=== PATIENT | female | born 1955 | race Caucasian/White ===

== ENCOUNTER 2017-09-18 08:20 | Inpatient (IN) | payer BC ==
[2017-09-18] MEDS ORDERED: SODIUM CHLORIDE 0.9% 1,000 ML IV STA (08:47)
[2017-09-18] MEDS ORDERED: ALBUTEROL NEBULIZED 2.5 MG/3 ML INHALATION STA (08:47)
[2017-09-18] MEDS ORDERED: SODIUM CHLORIDE 0.9% 500 ML IV STA (08:47)
[2017-09-18] MEDS ORDERED: IPRATROPIUM 0.5 MG/2.5 ML NEBU INHALATION STA (08:47)
[2017-09-18] MEDS ORDERED: AZITHROMYCIN 500 MG in SODIUM CHLORIDE 0.9% 250 ML IVPB STA (08:49)
[2017-09-18 09:01] LABS: Basophils # (A) 0.1 k/uL (0-0.2); Basophils % (A) 0 %; Eosinophils # (A) 0.2 k/uL (0-0.7); Eosinophils % (A) 1 %; HCT 39.2 % (34.0-46.0); HGB 13.4 gm/dL (11.4-16.0); Lymphocytes # (A) 1.6 k/uL (1.0-4.8); Lymphocytes % (A) 10 %; MCH 31.2 pg (25.0-35.0); MCHC 34.2 g/dL (31.0-37.0); MCV 91.2 fL (80.0-100.0); Mean Platelet Volume 6.6; Monocytes # (A) 0.6 k/uL (0-1.0); Monocytes % (A) 4 %; Neutrophils # (A) 13.1 k/uL (1.3-7.7); Neutrophils % (A) 84 %; Platelet Count 311 k/uL (150-450); RDW 13.2 % (11.5-15.5); WBC 15.7 k/uL (3.8-10.6)
--- NOTE | 2017-09-18 09:07 | XR ---
EXAMINATION TYPE: XR chest 1V portable DATE OF EXAM: 09/18/2017 COMPARISON: NONE HISTORY: Shortness of breath TECHNIQUE: Single frontal view of the chest is obtained. FINDINGS: There is no focal air space opacity, pleural effusion, or pneumothorax seen. The cardiac silhouette size is within normal limits. The osseous structures are intact. Atherosclerotic change of the aorta. No overt failure IMPRESSION: No acute process.
[2017-09-18 09:13] LABS: Partial Thromboplastin Time 22.3 sec (22.0-30.0); Prothrombin Time 9.5 sec (9.0-12.0)
[2017-09-18 09:14] LABS: ALT 31 U/L (9-52); AST 29 U/L (14-36); Albumin 4.4 g/dL (3.5-5.0); Alkaline Phosphatase 117 U/L (38-126); Anion Gap 13 mmol/L; Blood Urea Nitrogen 16 mg/dL (7-17); Calcium 10.3 mg/dL (8.4-10.2); Carbon Dioxide 27 mmol/L (22-30); Chloride 102 mmol/L (98-107); Glucose 114 mg/dL (74-99); Potassium 4.2 mmol/L (3.5-5.1); Sodium 142 mmol/L (137-145); Total Bilirubin 0.6 mg/dL (0.2-1.3); Total Protein 7.2 g/dL (6.3-8.2)
--- NOTE | 2017-09-18 09:23 | ED ---
General Adult HPI - General Chief complaint: Shortness of Breath Stated complaint: JEFFERSON Time Seen by Provider: 09/18/17 08:45 Source: patient, RN notes reviewed, old records reviewed Mode of arrival: wheelchair Limitations: no limitations - History of Present Illness Initial comments: This is a 62-year-old female the ER for evaluation of significant shortness of breath especially with exertion. Patient has history of heart disease and history of smoking but no diagnosis of COPD. Patient states her lungs and wheezing she's been coughing and suffering with a respiratory infection 3 days. No chest pain. Patient states she has had fluid on her heart before but nothing recently. She denies any fevers, no cough or congestion no travel history. - Related Data Home Medications Medication Instructions Recorded Confirmed ALPRAZolam [Xanax] 0.5 mg PO HS 09/18/17 09/18/17 Ascorbic Acid [Vitamin C] 500 mg PO DAILY 09/18/17 09/18/17 Atorvastatin [Lipitor] 80 mg PO HS 09/18/17 09/18/17 Cholecalciferol [Vitamin D3] 1,000 unit PO DAILY 09/18/17 09/18/17 Ibuprofen [Motrin] 600 mg PO Q8HR PRN 09/18/17 09/18/17 Levothyroxine Sodium [Synthroid] 50 mcg PO DAILY 09/18/17 09/18/17 [place]-3 Fatty Acids/Fish Oil [Fish 1 cap PO DAILY 09/18/17 09/18/17 Oil 1,000 mg Softgel] Potassium Chloride [Klor-Con 20] 40 meq PO HS 09/18/17 09/18/17 Triamterene-Hctz 37.5-25Mg 1 cap PO DAILY 09/18/17 09/18/17 [Dyazide 37.5-25 Capsule] Ubidecarenone [Co Q-10] 100 mg PO DAILY 09/18/17 09/18/17 Vitamin B Complex 1 cap PO DAILY 09/18/17 09/18/17 amLODIPine [Norvasc] 10 mg PO DAILY 09/18/17 09/18/17 Allergies Allergy/AdvReac Type Severity Reaction Status Date / Time latex Allergy Rash/Hives Verified 09/18/17 08:50 Review of Systems ROS Statement: Those systems with pertinent positive or pertinent negative responses have been documented in the HPI. ROS Other: All systems not noted in ROS Statement are negative. Past Medical History Past Medical History: Hyperlipidemia, Hypertension, Thyroid Disorder History of Any Multi-Drug Resistant Organisms: None Reported Past Surgical History: Heart Catheterization, Orthopedic Surgery Additional Past Surgical History / Comment(s): bilateral knees Past Psychological History: Anxiety Smoking Status: Current every day smoker Past Alcohol Use History: Occasional Past Drug Use History: None Reported General Exam Limitations: no limitations General appearance: alert, in no apparent distress, anxious, in distress Head exam: Present: atraumatic, normocephalic, normal inspection Eye exam: Present: normal appearance, PERRL, EOMI. Absent: scleral icterus, conjunctival injection, periorbital swelling ENT exam: Present: normal exam, mucous membranes moist Neck exam: Present: normal inspection. Absent: tenderness, meningismus, lymphadenopathy Respiratory exam: Present: respiratory distress, wheezes, rales, decreased breath sounds, prolonged expiratory. Absent: rhonchi, stridor Cardiovascular Exam: Present: normal rhythm, tachycardia, normal heart sounds. Absent: systolic murmur, diastolic murmur, rubs, gallop, clicks GI/Abdominal exam: Present: soft, normal bowel sounds. Absent: distended, tenderness, guarding, rebound, rigid Extremities exam: Present: normal inspection, full ROM, normal capillary refill. Absent: tenderness, pedal edema, joint swelling, calf tenderness Back exam: Present: normal inspection Neurological exam: Present: alert, oriented X3, CN II-XII intact Psychiatric exam: Present: normal affect, normal mood Skin exam: Present: warm, dry, intact, normal color. Absent: rash Course Vital Signs 09/18/17 09/18/17 09/18/17 08:28 08:53 09:10 Temperature 98 F Pulse Rate 118 H 98 102 H Respiratory 28 H Rate Blood Pressure 163/82 O2 Sat by Pulse 80 L Oximetry 09/18/17 09:44 Temperature Pulse Rate 112 H Respiratory Rate Blood Pressure O2 Sat by Pulse Oximetry - Reevaluation(s) Reevaluation #1: 09/18/17 10:40 Patient with no improvement after prolonged breathing treatment and mild improvement, patient placed on BiPAP EKG Findings - EKG Comments: EKG Findings:: EKG shows sinus tachycardia rate 102, [place] 132, QRS 78, QTC 411 Medical Decision Making - Medical Decision Making 62 female the ER for evaluation, patient presents ER for evaluation of shortness of breath, patient placed on BiPAP secondary severe work of breathing COPD with hypoxia. Patient will be admitted for further evaluation and treatment - Lab Data Result diagrams: 09/18/17 08:45 09/18/17 08:45 Lab Results 09/18/17 09/18/17 09/18/17 Range/Units 08:45 08:45 08:45 WBC 15.7 H (3.8-10.6) k/uL RBC 4.30 (3.80-5.40) m/uL Hgb 13.4 (11.4-16.0) gm/dL Hct 39.2 (34.0-46.0) % MCV 91.2 (80.0-100.0) fL MCH 31.2 (25.0-35.0) pg MCHC 34.2 (31.0-37.0) g/dL RDW 13.2 (11.5-15.5) % Plt Count 311 (150-450) k/uL Neutrophils % 84 % Lymphocytes % 10 % Monocytes % 4 % Eosinophils % 1 % Basophils % 0 % Neutrophils # 13.1 H (1.3-7.7) k/uL Lymphocytes # 1.6 (1.0-4.8) k/uL Monocytes # 0.6 (0-1.0) k/uL Eosinophils # 0.2 (0-0.7) k/uL Basophils # 0.1 (0-0.2) k/uL PT (9.0-12.0) sec INR (<1.2) APTT (22.0-30.0) sec Sodium 142 (137-145) mmol/L Potassium 4.2 (3.5-5.1) mmol/L Chloride 102 (98-107) mmol/L Carbon Dioxide 27 (22-30) mmol/L Anion Gap 13 mmol/L BUN 16 (7-17) mg/dL Creatinine 0.88 (0.52-1.04) mg/dL Est GFR (MDRD) Af Amer >60 (>60 ml/min/1.73 sqM) Est GFR (MDRD) Non-Af >60 (>60 ml/min/1.73 sqM) Glucose 114 H (74-99) mg/dL Calcium 10.3 H (8.4-10.2) mg/dL Magnesium 1.7 (1.6-2.3) mg/dL Total Bilirubin 0.6 (0.2-1.3) mg/dL AST 29 (14-36) U/L ALT 31 (9-52) U/L Alkaline Phosphatase 117 (38-126) U/L Total Creatine Kinase 181 H (30-135) U/L CK-MB (CK-2) 2.7 H* (0.0-2.4) ng/mL CK-MB (CK-2) Rel Index 1.5 Troponin I <0.012 (0.000-0.034) ng/mL NT-Pro-B Natriuret Pep pg/mL Total Protein 7.2 (6.3-8.2) g/dL Albumin 4.4 (3.5-5.0) g/dL 09/18/17 09/18/17 Range/Units 08:45 08:45 WBC (3.8-10.6) k/uL RBC (3.80-5.40) m/uL Hgb (11.4-16.0) gm/dL Hct (34.0-46.0) % MCV (80.0-100.0) fL MCH (25.0-35.0) pg MCHC (31.0-37.0) g/dL RDW (11.5-15.5) % Plt Count (150-450) k/uL Neutrophils % % Lymphocytes % % Monocytes % % Eosinophils % % Basophils % % Neutrophils # (1.3-7.7) k/uL Lymphocytes # (1.0-4.8) k/uL Monocytes # (0-1.0) k/uL Eosinophils # (0-0.7) k/uL Basophils # (0-0.2) k/uL PT 9.5 (9.0-12.0) sec INR 1.0 (<1.2) APTT 22.3 (22.0-30.0) sec Sodium (137-145) mmol/L Potassium (3.5-5.1) mmol/L Chloride (98-107) mmol/L Carbon Dioxide (22-30) mmol/L Anion Gap mmol/L BUN (7-17) mg/dL Creatinine (0.52-1.04) mg/dL Est GFR (MDRD) Af Amer (>60 ml/min/1.73 sqM) Est GFR (MDRD) Non-Af (>60 ml/min/1.73 sqM) Glucose (74-99) mg/dL Calcium (8.4-10.2) mg/dL Magnesium (1.6-2.3) mg/dL Total Bilirubin (0.2-1.3) mg/dL AST (14-36) U/L ALT (9-52) U/L Alkaline Phosphatase (38-126) U/L Total Creatine Kinase (30-135) U/L CK-MB (CK-2) (0.0-2.4) ng/mL CK-MB (CK-2) Rel Index Troponin I (0.000-0.034) ng/mL NT-Pro-B Natriuret Pep 169 pg/mL Total Protein (6.3-8.2) g/dL Albumin (3.5-5.0) g/dL - Radiology Data Radiology results: report reviewed (Chest x-rays negative), image reviewed Critical Care Time Critical Care Time: Yes Total Critical Care Time: 31 Disposition Clinical Impression: Acute exacerbation of chronic obstructive airways disease, Acute respiratory failure, Hypoxia Disposition: ADMITTED IP TO THIS HOSP Condition: Fair Referrals: Ollie Patten MD [Primary Care Provider] - 1-2 days
[2017-09-18 09:25] LABS: Creatine Kinase 181 U/L (30-135)
[2017-09-18 09:37] LABS: Troponin I <0.012 ng/mL (0.000-0.034)
[2017-09-18 09:41] LABS: Creatine Kinase MB 2.7 ng/mL (0.0-2.4)
[2017-09-18] MEDS ORDERED: methylPREDNISolone SOD SUCCI 125 MG/2 ML VIAL IV STA (10:42)
[2017-09-18] MEDS ORDERED: cefTRIAXone IN SWFI 1,000 MG/10 ML SYRINGE IVP STA (11:04)
[2017-09-18 11:15] LABS: ABG Base Excess 0.5 mmol/L; ABG HCO3 25 mmol/L (21-25); ABG Oxygen Saturation 96.4 % (94-97); ABG PCO2 40 mmHg (35-45); ABG PH 7.41 (7.35-7.45); ABG PO2 77 mmHg (83-108); ABG TCO2 26 mmol/L (19-24)
[2017-09-18] MEDS: TRIAMTERENE-HCTZ 37.5-25MG 1 EACH CAP PO STA ×2 (11:29→12:13)
[2017-09-18] MEDS ORDERED: PNEUMOCOCCAL VACC-PNEUMOVAX 23 25 MCG/0.5 ML VIAL IM ONE (12:03)
[2017-09-18] MEDS: IPRATROPIUM-ALBUTEROL 3 ML NEB INHALATION SCH ×3 (12:57→20:27)
[2017-09-18] MEDS ORDERED: IPRATROPIUM-ALBUTEROL 3 ML NEB INHALATION PRN (13:18)
[2017-09-18] MEDS ORDERED: PANTOPRAZOLE 40 MG TABLET PO STA (13:32)
--- NOTE | 2017-09-18 13:37 | P.HPIM ---
History of Present Illness H&P Date: 09/18/17 Chief Complaint: Shortness of breath and cough The patient is a 62-year-old female with a past medical history of essential hypertension hyperlipidemia and hypothyroidism and a history of smoking who presents to the ER with chief complaint of progressive worsening shortness of breath over the last 3 days. 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 She reports a significant pack history of at least 40 years, but denies any diagnosis of COPD. She denies any nausea vomiting abdominal pain or lower extremity swelling. She reports of pretty bad wheezes and progressive worsening shortness of breath since Thursday , she does not have an inhaler of any kind. On presentation in the ER she was noted to be pretty dyspneic and in respiratory distress and was admitted and placed on BiPAP in the ER and started on systemic steroids Solu-Medrol, DuoNeb breathing treatments and azithromycin. The patient was noted to have a leukocytosis of 15 and a chest x-ray that showed no acute process Review of Systems All of the 14 point review of systems negative except per HPI Past Medical History Past Medical History: Hyperlipidemia, Hypertension, Osteoarthritis (OA), Thyroid Disorder Additional Past Medical History / Comment(s): Hypothyroid, varicosities. History of Any Multi-Drug Resistant Organisms: None Reported Past Surgical History: Heart Catheterization, Orthopedic Surgery, Tubal Ligation , Uterine Ablation Additional Past Surgical History / Comment(s): Bilateral knee arthroscopies, colonoscopy, cardiac cath showed an "extra artery". Past Anesthesia/Blood Transfusion Reactions: No Reported Reaction Past Psychological History: Anxiety Additional Psychological History / Comment(s): Pt resides with her granddaughter who is 16 yrs old and a cat and dog. Pt is independent. Smoking Status: Current every day smoker Past Alcohol Use History: Occasional Additional Past Alcohol Use History / Comment(s): Pt started smoking in 1977 and is less than a ppd smoker. Past Drug Use History: None Reported - Past Family History Father Family Medical History: Dementia Additional Family Medical History / Comment(s): Father of alzheimer's disease Mother Family Medical History: No Reported History Additional Family Medical History / Comment(s): Mother is 84 yrs old. Medications and Allergies Home Medications Medication Instructions Recorded Confirmed Type ALPRAZolam [Xanax] 0.5 mg PO HS 09/18/17 09/18/17 History Ascorbic Acid [Vitamin C] 500 mg PO DAILY 09/18/17 09/18/17 History Atorvastatin [Lipitor] 80 mg PO HS 09/18/17 09/18/17 History Cholecalciferol [Vitamin D3] 1,000 unit PO DAILY 09/18/17 09/18/17 History Ibuprofen [Motrin] 600 mg PO Q8HR PRN 09/18/17 09/18/17 History Levothyroxine Sodium [Synthroid] 50 mcg PO DAILY 09/18/17 09/18/17 History [place]-3 Fatty Acids/Fish Oil [Fish 1 cap PO DAILY 09/18/17 09/18/17 History Oil 1,000 mg Softgel] Potassium Chloride [Klor-Con 20] 40 meq PO HS 09/18/17 09/18/17 History Triamterene-Hctz 37.5-25Mg 1 cap PO DAILY 09/18/17 09/18/17 History [Dyazide 37.5-25 Capsule] Ubidecarenone [Co Q-10] 100 mg PO DAILY 09/18/17 09/18/17 History Vitamin B Complex 1 cap PO DAILY 09/18/17 09/18/17 History amLODIPine [Norvasc] 10 mg PO DAILY 09/18/17 09/18/17 History Allergies Allergy/AdvReac Type Severity Reaction Status Date / Time latex Allergy Rash/Hives Verified 09/18/17 08:50 Physical Exam Vitals: Vital Signs Temp Pulse Resp BP Pulse Ox 09/18/17 13:18 96 09/18/17 12:57 92 09/18/17 11:05 97.4 F L 112 H 20 122/62 96 09/18/17 10:33 108 H 20 117/62 09/18/17 09:44 112 H 09/18/17 09:33 104 H 134/62 99 09/18/17 09:10 102 H 09/18/17 08:53 98 09/18/17 08:28 98 F 118 H 28 H 163/82 80 L Intake and Output 09/17/17 09/18/17 09/18/17 22:59 06:59 14:59 Other: Weight 76.204 kg Patient Weight 09/19/17 06:59 Weight 76.204 kg Constitutional: No acute distress, conversant, pleasant Eyes: Anicteric sclerae, moist conjunctiva, no lid-lag, PERRLA ENMT: NC/AT,Oropharynx clear, no erythema, exudates Neck:Supple, FROM, no masses, or JVD, No carotid bruits; No thyromegaly Lungs: Poor air movement diffuse wheezes, Clear to percussion, mild respiratory distress speaking in complete sentences, on BiPAP Cardiovascular: Heart regular in rate and rhythm, No murmurs, gallops, or rubs no peripheral edema Abdominal: Soft Nontender, nom distended, no guarding, no rebound or rigidity, Normoactive bowel sounds No hepatomegaly, No splenomegaly, No palpable mass No abdominal wall hernia noted Skin: Normal temperature, tone, texture, turgor, No induration No subcutaneous nodules, No rash, lesions, No ulcers Extremities:No digital cyanosis No clubbing, Pedal pulses intact and symmetrical Radial pulses intact and symmetrical Normal gait and station, No calf tenderness Psychiatric: Alert and oriented to person, place and time, Appropriate affect Intact judgement Neuro: Muscles Strength 5/5 in all 4 extremities, Sensation to light touch grossly present throughout, Cranial nerves II-XII grossly intact. No focal sensory deficits Results CBC & Chem 7: 09/18/17 08:45 09/18/17 08:45 Labs: Abnormal Lab Results - Last 24 Hours (Table) 09/18/17 09/18/17 09/18/17 Range/Units 08:45 08:45 08:45 WBC 15.7 H (3.8-10.6) k/uL Neutrophils # 13.1 H (1.3-7.7) k/uL ABG pO2 (83-108) mmHg ABG Total CO2 (19-24) mmol/L Glucose 114 H (74-99) mg/dL Calcium 10.3 H (8.4-10.2) mg/dL Total Creatine Kinase 181 H (30-135) U/L CK-MB (CK-2) 2.7 H* (0.0-2.4) ng/mL 09/18/17 Range/Units 11:12 WBC (3.8-10.6) k/uL Neutrophils # (1.3-7.7) k/uL ABG pO2 77 L (83-108) mmHg ABG Total CO2 26 H (19-24) mmol/L Glucose (74-99) mg/dL Calcium (8.4-10.2) mg/dL Total Creatine Kinase (30-135) U/L CK-MB (CK-2) (0.0-2.4) ng/mL Thrombosis Risk Factor Assmnt - Choose All That Apply Any of the Below Risk Factors Present?: Yes Each Factor Represents 1 point: Obesity (BMI >25), Varicose veins Other Risk Factors: Yes Each Risk Factor Represents 2 Points: Age 61-74 years Other congenital or acquired thrombophilia - If yes, enter type in comment: No Thrombosis Risk Factor Assessment Total Risk Factor Score: 4 Thrombosis Risk Factor Assessment Level: Moderate Risk Assessment and Plan (1) Acute respiratory failure with hypoxemia Current Visit: Yes Status: Acute Code(s): J96.01 - ACUTE RESPIRATORY FAILURE WITH HYPOXIA SNOMED Code(s): 703394711 (2) Acute exacerbation of chronic obstructive airways disease Current Visit: Yes Status: Acute Code(s): J44.1 - CHRONIC OBSTRUCTIVE PULMONARY DISEASE W (ACUTE) EXACERBATION SNOMED Code(s): 476016405 (3) Essential hypertension Current Visit: Yes Status: Acute Code(s): I10 - ESSENTIAL (PRIMARY) HYPERTENSION SNOMED Code(s): 88764390 Plan: The patient is admitted with acute respiratory failure with hypoxemia anticipate a greater than 2 midnight stay triggered by a acute COPD exacerbation likely secondary to upper respiratory tract infection. She is continued on BiPAP ABG indicating some hypoxemia present, will consult pulmonary for further recommendations. It is likely given the patient's significant pack history that she has underlying COPD. We'll continue with scheduled and when necessary DuoNeb bronchodilator breathing treatments, along with Solu-Medrol And empiric antibiotic coverage with Rocephin and azithromycin , will start her on some gentle hydration and recheck a chest x-ray tomorrow, on the flu is negative will order urinalysis and blood cultures given the patient's leukocytosis. We'll resume her home antihypertensive regimen and continue to follow her clinical course. We'll place the patient on Lovenox and Protonix for DVT and GI prophylaxis respectively
--- NOTE | 2017-09-18 14:49 | P.CNPUL ---
History of Present Illness Consult date: 09/18/17 Requesting physician: Elton Agarwal Reason for consult: dyspnea, cough, chest pain, COPD Chief complaint: Increasing dyspnea, cough with yellow phlegm production, chest wall pain History of present illness: Connie is a 62-year-old white female patient of Dr. Patten who presented to the hospital on 09/18/2017 at 0820 with complaints of significant orthopnea, dyspnea , congested cough with production of thick yellow phlegm, and chest wall tenderness with coughing. Her symptoms started last Thursday and became progressively worse, and for the last 2 days she has been in significant amount of respiratory distress. She states her granddaughter was sick with the upper respiratory infection last week, but improved. Patient is a current smoker, on and off for over 44 years, currently down to less than a pack a day. Has never been diagnosed with COPD, is not on any oxygen, inhalers or nebulized treatments. Denies any fever, or chills. Denies any hemoptysis. On admission in the emergency room, her pulse ox was found to be as low as 80% on room air, patient was placed on supplemental oxygen. She has been afebrile, she has been slightly tachycardic with a rate of 112 BPM. Chest x-ray showed no acute process. Lab work showed a PVC of 15.7, hemoglobin of 13.4, electrolytes were within normal limits so has the renal profile, CK-MB was slightly elevated at 2.7, troponin was negative 1, proBNP was within normal limits at 169, influenza screen was negative. Blood gas was obtained and it showed a pH of 7.41, pCO2 of 40, pO2 of 77, this was done on FiO2 of 40%. Patient was placed on BiPAP support with pressures of 10/5, and FiO2 of 40%. Patient was started on IV Solu-Medrol, azithromycin and Rocephin, DuoNeb nebulized treatments and admitted for further management. Review of Systems All systems: negative Constitutional: Denies chills, Denies fever Eyes: denies blurred vision, denies pain Ears, nose, mouth and throat: Denies headache, Denies sore throat Cardiovascular: Denies chest pain, Denies shortness of breath Respiratory: Denies cough Gastrointestinal: Denies abdominal pain, Denies diarrhea, Denies nausea, Denies vomiting Genitourinary: Denies dysuria, Denies hematuria Musculoskeletal: Denies myalgias Integumentary: Denies pruritus, Denies rash Neurological: Denies numbness, Denies weakness Psychiatric: Denies anxiety, Denies depression Endocrine: Denies fatigue, Denies weight change Past Medical History Past Medical History: Hyperlipidemia, Hypertension, Osteoarthritis (OA), Thyroid Disorder Additional Past Medical History / Comment(s): Hypothyroid, varicosities. History of Any Multi-Drug Resistant Organisms: None Reported Past Surgical History: Heart Catheterization, Orthopedic Surgery, Tubal Ligation , Uterine Ablation Additional Past Surgical History / Comment(s): Bilateral knee arthroscopies, colonoscopy, cardiac cath showed an "extra artery". Past Anesthesia/Blood Transfusion Reactions: No Reported Reaction Past Psychological History: Anxiety Additional Psychological History / Comment(s): Pt resides with her granddaughter who is 16 yrs old and a cat and dog. Pt is independent. Smoking Status: Current every day smoker Past Alcohol Use History: Occasional Additional Past Alcohol Use History / Comment(s): Pt started smoking in 1977 and is less than a ppd smoker. Past Drug Use History: None Reported - Past Family History Father Family Medical History: Dementia Additional Family Medical History / Comment(s): Father of alzheimer's disease Mother Family Medical History: No Reported History Additional Family Medical History / Comment(s): Mother is 84 yrs old. Medications and Allergies Home Medications Medication Instructions Recorded Confirmed Type ALPRAZolam [Xanax] 0.5 mg PO HS 09/18/17 09/18/17 History Ascorbic Acid [Vitamin C] 500 mg PO DAILY 09/18/17 09/18/17 History Atorvastatin [Lipitor] 80 mg PO HS 09/18/17 09/18/17 History Cholecalciferol [Vitamin D3] 1,000 unit PO DAILY 09/18/17 09/18/17 History Ibuprofen [Motrin] 600 mg PO Q8HR PRN 09/18/17 09/18/17 History Levothyroxine Sodium [Synthroid] 50 mcg PO DAILY 09/18/17 09/18/17 History [place]-3 Fatty Acids/Fish Oil [Fish 1 cap PO DAILY 09/18/17 09/18/17 History Oil 1,000 mg Softgel] Potassium Chloride [Klor-Con 20] 40 meq PO HS 09/18/17 09/18/17 History Triamterene-Hctz 37.5-25Mg 1 cap PO DAILY 09/18/17 09/18/17 History [Dyazide 37.5-25 Capsule] Ubidecarenone [Co Q-10] 100 mg PO DAILY 09/18/17 09/18/17 History Vitamin B Complex 1 cap PO DAILY 09/18/17 09/18/17 History amLODIPine [Norvasc] 10 mg PO DAILY 09/18/17 09/18/17 History Allergies Allergy/AdvReac Type Severity Reaction Status Date / Time latex Allergy Rash/Hives Verified 09/18/17 08:50 Physical Exam Vitals: Vital Signs Temp Pulse Resp BP Pulse Ox 09/18/17 13:18 96 09/18/17 12:57 92 09/18/17 11:05 97.4 F L 112 H 20 122/62 96 09/18/17 10:33 108 H 20 117/62 09/18/17 09:44 112 H 09/18/17 09:33 104 H 134/62 99 09/18/17 09:10 102 H 09/18/17 08:53 98 09/18/17 08:28 98 F 118 H 28 H 163/82 80 L Intake and Output 09/17/17 09/18/17 09/18/17 22:59 06:59 14:59 Other: Weight 76.204 kg Patient Weight 09/19/17 06:59 Weight 76.204 kg GENERAL EXAM: Alert, pleasant, 62-year-old white female, comfortable in no apparent distress. HEAD: Normocephalic/atraumatic. EYES: Normal reaction of pupils, equal size. Conjunctiva pink, sclera white. NOSE: Clear with pink turbinates. THROAT: No erythema or exudates. NECK: No masses, no JVD, no thyroid enlargement, no adenopathy. CHEST: No chest wall deformity. Symmetrical expansion. LUNGS: Diminished breath sounds bilaterally, with scattered expiratory wheezes throughout the lung golden CVS: Regular rate and rhythm, normal S1 and S2, no gallops, no murmurs, no rubs ABDOMEN: Soft, nontender. No hepatosplenomegaly, normal bowel sounds, no guarding or rigidity. EXTREMITIES: No clubbing, no edema, no cyanosis, 2+ pulses and upper and lower extremities. MUSCULOSKELETAL: Muscle strength and tone normal. SPINE: No scoliosis or deformity SKIN: No rashes CENTRAL NERVOUS SYSTEM: Alert and oriented -3. No focal deficits, tone is normal in all 4 extremities. PSYCHIATRIC: Alert and oriented -3. Appropriate affect. Intact judgment and insight. Results - Laboratory Findings CBC and BMP: 09/18/17 08:45 09/18/17 08:45 ABG ABG pH 7.41 (7.35-7.45) 09/18/17 11:12 ABG pCO2 40 mmHg (35-45) 09/18/17 11:12 ABG pO2 77 mmHg (83-108) L 09/18/17 11:12 ABG O2 Saturation 96.4 % (94-97) 09/18/17 11:12 PT/INR, D-dimer PT 9.5 sec (9.0-12.0) 09/18/17 08:45 INR 1.0 (<1.2) 09/18/17 08:45 Abnormal lab findings: Abnormal Labs 09/18/17 09/18/17 09/18/17 08:45 08:45 08:45 WBC 15.7 H Neutrophils # 13.1 H ABG pO2 ABG Total CO2 Glucose 114 H Calcium 10.3 H Total Creatine Kinase 181 H CK-MB (CK-2) 2.7 H* 09/18/17 11:12 WBC Neutrophils # ABG pO2 77 L ABG Total CO2 26 H Glucose Calcium Total Creatine Kinase CK-MB (CK-2) - Diagnostic Findings Chest x-ray: report reviewed Additional studies: Twelve-lead EKG reviewed Assessment and Plan Plan: Assessment: #1. Acute hypoxic respiratory failure secondary to acute COPD exacerbation complicated by purulent tracheobronchitis, chest x-ray from 09/18/2017 was negative for any acute process #2. COPD, severity of which is unknown at this time #3. Nicotine dependence, ongoing, patient carries over 44 [id number] smoking history on and off. Currently down to less than a pack a day #4. Hypertension, hyperlipidemia #5. Anxiety #6. Osteoarthritis #7. Hypothyroidism #8. Bilateral knee arthroscopies #9. Tubal ligation, uterine ablation history Plan: We will stop the Zithromax and Rocephin, patient will be switched to oral Augmentin, continue DuoNeb nebulized treatments, we will add Pulmicort and Perforomist. Continue Solu-Medrol 60 mg every 6 hours. Smoking cessation was strongly advised. Continue BiPAP support, patient may be given nasal cannula trial if she is able to tolerate later today. I performed a history & physical examination of the patient and discussed their management with my nurse practitioner, Catherine Rodriguez. I reviewed the nurse practitioner's note and agree with the documented findings and plan of care. Lung sounds are positive for diffuse wheezes throughout the lung golden. The findings and the impression was discussed with the patient. I attest to the documentation by the nurse practitioner. Time with Patient: Greater than 30
[2017-09-18] MEDS: INSULIN ASPART 100 UNIT/ML 1 ML 10 ML VIAL SQ SCH ×3 (15:48→20:45)
[2017-09-18] MEDS: SODIUM CHLORIDE 0.9% 1,000 ML IV SCH (15:49)
[2017-09-18] MEDS: ENOXAPARIN 40 MG/0.4 ML SYRINGE SQ SCH (15:49)
[2017-09-18] MEDS: methylPREDNISolone SOD SUCCI 125 MG/2 ML VIAL IV SCH ×3 (15:49→23:02)
[2017-09-18 16:52] LABS: Glucose,Whole Blood 183 mg/dL (75-99)
[2017-09-18 18:54] LABS: Appearance,Urine Clear (Clear); Bilirubin,Urine Negative (Negative); Blood,Urine Trace (Negative); Color,Urine Light Yellow; Glucose,Urine (UA) Negative (Negative); Ketones,Urine Negative (Negative); Leukocyte Esterase,Urine Moderate (Negative); Mucus,Urine Rare /hpf; PH, Urine 5.5 (5.0-8.0); Protein,Urine Negative (Negative); RBC,Urine 3 /hpf (0-5); Squamous Epithelial Cell,Urine 3 /hpf (0-4); Urobilinogen,Urine <2.0 mg/dL (<2.0); WBC,Urine 3 /hpf (0-5)
[2017-09-18] MEDS: FORMOTEROL FUMARATE 20 MCG/2 ML NEBU INHALATION SCH (20:26)
[2017-09-18] MEDS: BUDESONIDE 1 MG/2 ML NEBU INHALATION SCH (20:26)
[2017-09-18] MEDS: ALPRAZolam 0.5 MG TAB PO SCH (20:33)
[2017-09-18] MEDS: POTASSIUM CHLORIDE ER 20 MEQ TAB.ER PO SCH (20:33)
[2017-09-18] MEDS: AMOXIC-POT CLAV 875-125MG 1 EACH TAB PO SCH (20:33)
[2017-09-18] MEDS: ATORVASTATIN 80 MG TAB PO SCH (20:33)
[2017-09-18 20:43] LABS: Glucose,Whole Blood 147 mg/dL (75-99)
[2017-09-18] MEDS: IBUPROFEN 600 MG TAB PO PRN (20:44)
[2017-09-19] MEDS: IBUPROFEN 600 MG TAB PO PRN (04:05)
[2017-09-19 05:41] LABS: Glucose,Whole Blood 159 mg/dL (75-99)
[2017-09-19] MEDS: INSULIN ASPART 100 UNIT/ML 1 ML 10 ML VIAL SQ SCH ×4 (06:02→21:42)
[2017-09-19] MEDS: SODIUM CHLORIDE 0.9% 1,000 ML IV SCH ×3 (06:02→21:43)
[2017-09-19] MEDS: LEVOTHYROXINE 50 MCG TAB PO SCH (06:02)
[2017-09-19] MEDS: PANTOPRAZOLE 40 MG TABLET PO SCH (06:02)
[2017-09-19] MEDS: methylPREDNISolone SOD SUCCI 125 MG/2 ML VIAL IV SCH ×4 (06:03→23:18)
--- NOTE | 2017-09-19 07:55 | XR ---
EXAMINATION TYPE: XR chest 2V DATE OF EXAM: 09/19/2017 COMPARISON: 09/18/2017 INDICATION: COPD pneumonia TECHNIQUE: Frontal and lateral views of the chest are obtained. FINDINGS: The heart size is normal. The pulmonary vasculature is normal. The lungs are clear. There is some mild hyperinflation. IMPRESSION: 1. No acute pulmonary process.
[2017-09-19] MEDS: amLODIPine 10 MG TAB PO SCH (08:13)
[2017-09-19] MEDS: CHOLECALCIFEROL 1,000 UNIT TAB PO SCH (08:13)
[2017-09-19] MEDS: ASCORBIC ACID 500 MG TAB PO SCH (08:13)
[2017-09-19] MEDS: TRIAMTERENE-HCTZ 37.5-25MG 1 EACH CAP PO SCH (08:13)
[2017-09-19] MEDS: AMOXIC-POT CLAV 875-125MG 1 EACH TAB PO SCH ×2 (08:13→21:42)
[2017-09-19] MEDS: ENOXAPARIN 40 MG/0.4 ML SYRINGE SQ SCH (08:13)
[2017-09-19] MEDS: Z-BEC PO SCH (08:13)
[2017-09-19] MEDS: IPRATROPIUM-ALBUTEROL 3 ML NEB INHALATION SCH ×4 (08:39→19:57)
[2017-09-19] MEDS: FORMOTEROL FUMARATE 20 MCG/2 ML NEBU INHALATION SCH ×2 (08:39→19:57)
[2017-09-19] MEDS: BUDESONIDE 1 MG/2 ML NEBU INHALATION SCH ×2 (08:39→19:57)
[2017-09-19] MEDS ORDERED: AZITHROMYCIN 250 MG TAB PO SCH (09:00)
[2017-09-19] MEDS ORDERED: cefTRIAXone IN SWFI 1,000 MG/10 ML SYRINGE IVP SCH (09:00)
[2017-09-19] MEDS: CO Q-10 100MG PO SCH (09:07)
[2017-09-19 11:57] LABS: Glucose,Whole Blood 172 mg/dL (75-99)
[2017-09-19] MEDS ORDERED: ACETAMINOPHEN TAB 500 MG TAB PO PRN (14:05)
--- NOTE | 2017-09-19 15:10 | P.PN ---
Subjective Progress Note Date: 09/19/17 Patient complaining of a headache at times worse after her breathing treatments , currently on 4 L with good oxygen saturations, she doesn't think that she is ready to go home. No acute events overnight Objective - Vital Signs Vital signs: Vital Signs Temp 97.2 F L 09/19/17 11:47 Pulse 97 09/19/17 11:47 Resp 22 09/19/17 14:20 BP 126/58 09/19/17 11:47 Pulse Ox 91 L 09/19/17 14:20 Intake & Output 09/18/17 09/19/17 09/19/17 18:59 06:59 18:59 Intake Total 300 600 240 Output Total 400 700 Balance -100 -100 240 Weight 76.204 kg 76 kg Intake: Oral 300 600 240 Output: Urine 400 700 Other: # Voids 1 - Exam Constitutional: No acute distress, conversant, pleasant Eyes: Anicteric sclerae, moist conjunctiva, no lid-lag, PERRLA ENMT: NC/AT,Oropharynx clear, no erythema, exudates Neck:Supple, FROM, no masses, or JVD, No carotid bruits; No thyromegaly Lungs: Diffuse expiratory wheezes on 4 L nasal cannula, Clear to percussion, Normal respiratory effort, no accessory muscle use Cardiovascular: Heart regular in rate and rhythm, No murmurs, gallops, or rubs no peripheral edema Abdominal: Soft Nontender, nom distended, no guarding, no rebound or rigidity, Normoactive bowel sounds No hepatomegaly, No splenomegaly, No palpable mass No abdominal wall hernia noted Skin: Normal temperature, tone, texture, turgor, No induration No subcutaneous nodules, No rash, lesions, No ulcers Extremities:No digital cyanosis No clubbing, Pedal pulses intact and symmetrical Radial pulses intact and symmetrical Normal gait and station, No calf tenderness Psychiatric: Alert and oriented to person, place and time, Appropriate affect Intact judgement Neuro: Muscles Strength 5/5 in all 4 extremities, Sensation to light touch grossly present throughout, Cranial nerves II-XII grossly intact. No focal sensory deficits - Labs CBC & Chem 7: 09/18/17 08:45 09/18/17 08:45 Labs: Abnormal Lab Results - Last 24 Hours (Table) 03/02/18 03/02/18 03/02/18 Range/Units 16:44 18:30 20:42 POC Glucose (mg/dL) 183 H 147 H (75-99) mg/dL Urine Blood Trace H (Negative) Ur Leukocyte Esterase Moderate H (Negative) Urine Mucus Rare H (None) /hpf 09/19/17 09/19/17 Range/Units 05:39 11:52 POC Glucose (mg/dL) 159 H 172 H (75-99) mg/dL Urine Blood (Negative) Ur Leukocyte Esterase (Negative) Urine Mucus (None) /hpf Assessment and Plan (1) Acute respiratory failure with hypoxemia Narrative/Plan: * Secondary to acute COPD exacerbation, triggered By viral bronchitis * Continue with supplemental oxygen we'll wean to keep saturations 90- 92% * Continue with scheduled DuoNeb and when necessary DuoNeb's * Pulmonary following, appreciate recommendations Current Visit: Yes Status: Acute Code(s): J96.01 - ACUTE RESPIRATORY FAILURE WITH HYPOXIA SNOMED Code(s): 422032360 (2) Acute exacerbation of chronic obstructive airways disease Narrative/Plan: * Triggered by viral bronchitis * Continue with systemic steroids as well as inhaled formoterol and budesonide, Augmentin and DuoNeb therapy Current Visit: Yes Status: Acute Code(s): J44.1 - CHRONIC OBSTRUCTIVE PULMONARY DISEASE W (ACUTE) EXACERBATION SNOMED Code(s): 237201147 (3) Essential hypertension Narrative/Plan: * Blood pressure stable controlled on home regimen Current Visit: Yes Status: Acute Code(s): I10 - ESSENTIAL (PRIMARY) HYPERTENSION SNOMED Code(s): 02005282 (4) Headache Narrative/Plan: * Initiated therapy with Tylenol Current Visit: Yes Status: Acute Code(s): R51 - HEADACHE SNOMED Code(s): 23205223
--- NOTE | 2017-09-19 16:30 | P.PN ---
Subjective Progress Note Date: 09/19/17 Principal diagnosis: Acute hypoxic respiratory failure secondary to an acute exacerbation of COPD. Connie is a 62-year-old white female patient of Dr. Patten who presented to the hospital on 09/18/2017 at 0820 with complaints of significant orthopnea, dyspnea , congested cough with production of thick yellow phlegm, and chest wall tenderness with coughing. Her symptoms started last Thursday and became progressively worse, and for the last 2 days she has been in significant amount of respiratory distress. She states her granddaughter was sick with the upper respiratory infection last week, but improved. Patient is a current smoker, on and off for over 44 years, currently down to less than a pack a day. Has never been diagnosed with COPD, is not on any oxygen, inhalers or nebulized treatments. Denies any fever, or chills. Denies any hemoptysis. On admission in the emergency room, her pulse ox was found to be as low as 80% on room air, patient was placed on supplemental oxygen. She has been afebrile, she has been slightly tachycardic with a rate of 112 BPM. Chest x-ray showed no acute process. Lab work showed a PVC of 15.7, hemoglobin of 13.4, electrolytes were within normal limits so has the renal profile, CK-MB was slightly elevated at 2.7, troponin was negative 1, proBNP was within normal limits at 169, influenza screen was negative. Blood gas was obtained and it showed a pH of 7.41, pCO2 of 40, pO2 of 77, this was done on FiO2 of 40%. Patient was placed on BiPAP support with pressures of 10/5, and FiO2 of 40%. Patient was started on IV Solu-Medrol, azithromycin and Rocephin, DuoNeb nebulized treatments and admitted for further management. The patient is seen again today 09/19/2017 in follow-up on the selective care unit. She is currently sitting up in bed she is awake and alert in no acute distress. She is still dyspneic with minimal exertion still with some bronchospasm and wheezing. Better today as compared to yesterday however. She is maintaining O2 saturations in the 90s on 2 L/m per nasal cannula. She's been afebrile. Hemodynamically stable. The cultures reveal no growth to date. She is maintained on DuoNeb inhalations 4 times a day and when necessary, Pulmicort and Perforomist inhalations twice a day, IV Solu-Medrol. Objective - Vital Signs Vital signs: Vital Signs Temp 97.2 F L 09/19/17 11:47 Pulse 107 H 09/19/17 15:27 Resp 22 09/19/17 14:20 BP 126/58 09/19/17 11:47 Pulse Ox 91 L 09/19/17 14:20 Intake & Output 09/18/17 09/19/17 09/19/17 18:59 06:59 18:59 Intake Total 300 600 240 Output Total 400 700 Balance -100 -100 240 Weight 76.204 kg 76 kg Intake: Oral 300 600 240 Output: Urine 400 700 Other: # Voids 1 - Exam GENERAL EXAM: Alert, pleasant, 62-year-old white female, comfortable in no apparent distress. HEAD: Normocephalic/atraumatic. EYES: Normal reaction of pupils, equal size. Conjunctiva pink, sclera white. NOSE: Clear with pink turbinates. THROAT: No erythema or exudates. NECK: No masses, no JVD, no thyroid enlargement, no adenopathy. CHEST: No chest wall deformity. Symmetrical expansion. LUNGS: Diminished breath sounds bilaterally, with scattered expiratory wheezes throughout the lung golden CVS: Regular rate and rhythm, normal S1 and S2, no gallops, no murmurs, no rubs ABDOMEN: Soft, nontender. No hepatosplenomegaly, normal bowel sounds, no guarding or rigidity. EXTREMITIES: No clubbing, no edema, no cyanosis, 2+ pulses and upper and lower extremities. MUSCULOSKELETAL: Muscle strength and tone normal. SPINE: No scoliosis or deformity SKIN: No rashes CENTRAL NERVOUS SYSTEM: Alert and oriented -3. No focal deficits, tone is normal in all 4 extremities. PSYCHIATRIC: Alert and oriented -3. Appropriate affect. Intact judgment and insight. - Labs CBC & Chem 7: 09/18/17 08:45 09/18/17 08:45 Labs: Abnormal Lab Results - Last 24 Hours (Table) 09/18/17 09/18/17 09/18/17 Range/Units 16:44 18:30 20:42 POC Glucose (mg/dL) 183 H 147 H (75-99) mg/dL Urine Blood Trace H (Negative) Ur Leukocyte Esterase Moderate H (Negative) Urine Mucus Rare H (None) /hpf 09/19/17 09/19/17 Range/Units 05:39 11:52 POC Glucose (mg/dL) 159 H 172 H (75-99) mg/dL Urine Blood (Negative) Ur Leukocyte Esterase (Negative) Urine Mucus (None) /hpf Microbiology - Last 24 Hours (Table) 09/18/17 14:01 Blood Culture - Preliminary Blood No Growth after 24 hours 09/18/17 13:45 Blood Culture - Preliminary Blood No Growth after 24 hours Assessment and Plan Assessment: Assessment: #1. Acute hypoxic respiratory failure secondary to acute COPD exacerbation complicated by purulent tracheobronchitis, chest x-ray from 09/18/2017 was negative for any acute process #2. COPD, severity of which is unknown at this time #3. Nicotine dependence, ongoing, patient carries over 44 [id number] smoking history on and off. Currently down to less than a pack a day #4. Hypertension, hyperlipidemia #5. Anxiety #6. Osteoarthritis #7. Hypothyroidism #8. Bilateral knee arthroscopies #9. Tubal ligation, uterine ablation history Plan: The patient is seen and evaluated by Dr. Lr. She is improved today as compared to yesterday. Still not quite back to her baseline. We'll continue with her current treatment plan. We'll increase her activity as tolerated. She is again educated regarding the importance of complete smoking cessation. BiPAP remains at the bedside as needed. I, the cosigning physician, performed a history & physical examination of the patient. Lungs sounds have bilateral wheezing. Diminished. Maintaining good O2 saturations in the 90s on 2 L/m per nasal cannula. I discussed the assessment and plan of care with my nurse practitioner, Lorrie Hogue. I attest to the above note as dictated by her.
[2017-09-19 16:59] LABS: Glucose,Whole Blood 197 mg/dL (75-99)
[2017-09-19 18:23] LABS: Anion Gap 12 mmol/L; Blood Urea Nitrogen 18 mg/dL (7-17); Calcium 9.7 mg/dL (8.4-10.2); Carbon Dioxide 25 mmol/L (22-30); Chloride 103 mmol/L (98-107); Glucose 178 mg/dL (74-99); Sodium 140 mmol/L (137-145)
[2017-09-19 18:29] LABS: Potassium 2.8 mmol/L (3.5-5.1)
[2017-09-19] MEDS ORDERED: POTASSIUM BICARB-CITRIC ACID 25 MEQ TABLET.EFF PO STA (18:34)
[2017-09-19] MEDS: POTASSIUM CHLORIDE 20 MEQ in SODIUM CHLORIDE 0.9% 100 ML IVPB SCH ×2 (19:06→21:46)
[2017-09-19 21:01] LABS: Glucose,Whole Blood 173 mg/dL (75-99)
[2017-09-19] MEDS: ATORVASTATIN 80 MG TAB PO SCH (21:42)
[2017-09-19] MEDS: ALPRAZolam 0.5 MG TAB PO SCH (21:42)
[2017-09-19] MEDS: POTASSIUM CHLORIDE ER 20 MEQ TAB.ER PO SCH (21:42)
[2017-09-20 06:15] LABS: Glucose,Whole Blood 152 mg/dL (75-99)
[2017-09-20] MEDS: SODIUM CHLORIDE 0.9% 1,000 ML IV SCH ×2 (06:26→16:45)
[2017-09-20] MEDS: LEVOTHYROXINE 50 MCG TAB PO SCH (06:26)
[2017-09-20] MEDS: methylPREDNISolone SOD SUCCI 125 MG/2 ML VIAL IV SCH ×4 (06:26→23:07)
[2017-09-20] MEDS: PANTOPRAZOLE 40 MG TABLET PO SCH (06:26)
[2017-09-20] MEDS: INSULIN ASPART 100 UNIT/ML 1 ML 10 ML VIAL SQ SCH ×4 (06:27→21:25)
[2017-09-20] MEDS: IPRATROPIUM-ALBUTEROL 3 ML NEB INHALATION SCH ×5 (07:30→20:38)
[2017-09-20] MEDS: CO Q-10 100MG PO SCH (07:47)
[2017-09-20] MEDS: ENOXAPARIN 40 MG/0.4 ML SYRINGE SQ SCH (07:48)
[2017-09-20] MEDS: TRIAMTERENE-HCTZ 37.5-25MG 1 EACH CAP PO SCH (07:48)
[2017-09-20] MEDS: AMOXIC-POT CLAV 875-125MG 1 EACH TAB PO SCH ×2 (07:48→21:21)
[2017-09-20] MEDS: ASCORBIC ACID 500 MG TAB PO SCH (07:48)
[2017-09-20] MEDS: CHOLECALCIFEROL 1,000 UNIT TAB PO SCH (07:48)
[2017-09-20] MEDS: Z-BEC PO SCH (07:48)
[2017-09-20] MEDS: amLODIPine 10 MG TAB PO SCH (07:48)
--- NOTE | 2017-09-20 09:59 | P.PN ---
Subjective Progress Note Date: 09/20/17 Principal diagnosis: Hypoxemic respiratory failure, COPD exacerbation Progress note dated 09/20/2017 This is a 62-year-old female admitted with a diagnosis of acute hypoxemic respiratory failure secondary to COPD exacerbation. Chest x-ray was negative for pneumonia. She likely does have a purulent tracheobronchitis. The severity of her COPD is not not known. She has a history of ongoing tobacco use. She still smokes less than a pack a day has been smoking for 44 years. In addition, she has a history of hypertension anxiety DJD hypothyroidism bilateral knee arthroscopy tubal ligation and uterine ablation. From the pulmonary standpoint she is doing well. She likely is ready for discharge in next 24th 48 hrs. She is still short of breath particularly when she exerts himself. Denies any significant cough or wheeze. Not producing any phlegm. No fever or chills. No nausea vomiting or diarrhea. Objective - Vital Signs Vital signs: Vital Signs Temp 97.8 F 09/20/17 08:00 Pulse 103 H 09/20/17 08:00 Resp 20 09/20/17 08:00 BP 108/71 09/20/17 08:00 Pulse Ox 91 L 09/20/17 08:00 Intake & Output 09/19/17 09/20/17 09/20/17 18:59 06:59 18:59 Intake Total 1040 700 240 Output Total 800 Balance 1040 -100 240 Weight 80 kg Intake: Intake, IV Titration 800 700 Amount Potassium Chloride 20 meq 200 In Sodium Chloride 0.9% 100 ml @ 50 mls/hr IVPB Q2HR [facility] Rx#:[id number] Sodium Chloride 0.9% 1, 800 500 000 ml @ 100 mls/hr IV . Q10H [facility] Rx#:[id number] Oral 240 240 Output: Urine 800 Other: # Voids 1 1 # Bowel Movements 1 - Exam No acute distress, oriented 3. HEENT examination is grossly unremarkable. Mucous membranes are moist. No oral lesions. Neck supple. Full range of motion. No adenopathy thyromegaly or neck vein distention. Cardiovascular examination reveals regular rhythm rate. S1-S2 normal. No S3 or S4. No discernible murmur noted. Lungs reveal diminished breath sounds throughout. This a few scattered expiratory wheezes. No rhonchi. No crackles. Breath sounds are equal bilaterally. Slight prolongation on forced maneuver. Abdomen soft bowel sounds are heard. No masses or tenderness. Extremities are intact. No cyanosis clubbing or edema. Skin is without rash or lesion. Neurologic examination is brief but nonfocal. - Labs CBC & Chem 7: 09/18/17 08:45 09/19/17 17:41 Labs: Abnormal Lab Results - Last 24 Hours (Table) 09/19/17 09/19/17 09/19/17 Range/Units 11:52 16:47 17:41 Potassium 2.8 L* (3.5-5.1) mmol/L BUN 18 H (7-17) mg/dL Glucose 178 H (74-99) mg/dL POC Glucose (mg/dL) 172 H 197 H (75-99) mg/dL 09/19/17 09/20/17 Range/Units 20:58 06:13 Potassium (3.5-5.1) mmol/L BUN (7-17) mg/dL Glucose (74-99) mg/dL POC Glucose (mg/dL) 173 H 152 H (75-99) mg/dL Microbiology - Last 24 Hours (Table) 09/18/17 14:01 Blood Culture - Preliminary Blood No Growth after 24 hours 09/18/17 13:45 Blood Culture - Preliminary Blood No Growth after 24 hours Assessment and Plan Assessment: Assessment Acute hypoxemic respiratory failure secondary to COPD exacerbation complicated by tracheobronchitis. No evidence of pneumonia on chest x-ray COPD, the severity of which is not known Chronic ongoing tobacco use History of hypertension History of hyperlipidemia History of anxiety DJD Hypothyroidism Bilateral knee arthroscopies History of tubal ligation and uterine ablation Plan: Plan dated 09/20/2017 The patient's on appropriate medications. The patient could be considered for discharge in next day or so. We'll leave that up to the primary. The patient' s medications include all the usual including short acting beta agonist, short acting muscarinic antagonist, systemic corticosteroids, a combination long- acting beta agonist/inhaled corticosteroid, and antibiotics. The patient should have follow-up in our office for staging of her COPD which would include a complete pulmonary function test in 6 minute [address] distance. Time with Patient: Less than 30
[2017-09-20] MEDS: BUDESONIDE 1 MG/2 ML NEBU INHALATION SCH ×2 (11:16→20:35)
[2017-09-20] MEDS: FORMOTEROL FUMARATE 20 MCG/2 ML NEBU INHALATION SCH ×2 (11:16→20:50)
[2017-09-20 11:40] LABS: Glucose,Whole Blood 121 mg/dL (75-99)
[2017-09-20 16:31] LABS: Glucose,Whole Blood 169 mg/dL (75-99)
[2017-09-20 21:14] LABS: Glucose,Whole Blood 155 mg/dL (75-99)
[2017-09-20] MEDS: ATORVASTATIN 80 MG TAB PO SCH (21:21)
[2017-09-20] MEDS: POTASSIUM CHLORIDE ER 20 MEQ TAB.ER PO SCH (21:21)
[2017-09-20] MEDS: ALPRAZolam 0.5 MG TAB PO SCH (21:24)
[2017-09-21] MEDS: SODIUM CHLORIDE 0.9% 1,000 ML IV SCH ×3 (04:49→22:16)
[2017-09-21 06:04] LABS: Glucose,Whole Blood 157 mg/dL (75-99)
[2017-09-21] MEDS: PANTOPRAZOLE 40 MG TABLET PO SCH (06:30)
[2017-09-21] MEDS: methylPREDNISolone SOD SUCCI 125 MG/2 ML VIAL IV SCH ×2 (06:30→12:46)
[2017-09-21] MEDS: LEVOTHYROXINE 50 MCG TAB PO SCH (06:30)
[2017-09-21] MEDS: INSULIN ASPART 100 UNIT/ML 1 ML 10 ML VIAL SQ SCH ×4 (06:30→22:10)
[2017-09-21] MEDS: amLODIPine 10 MG TAB PO SCH (08:39)
[2017-09-21] MEDS: AMOXIC-POT CLAV 875-125MG 1 EACH TAB PO SCH ×2 (08:39→22:11)
[2017-09-21] MEDS: ASCORBIC ACID 500 MG TAB PO SCH (08:40)
[2017-09-21] MEDS: Z-BEC PO SCH (08:40)
[2017-09-21] MEDS: CHOLECALCIFEROL 1,000 UNIT TAB PO SCH (08:40)
[2017-09-21] MEDS: ENOXAPARIN 40 MG/0.4 ML SYRINGE SQ SCH (08:40)
[2017-09-21] MEDS: TRIAMTERENE-HCTZ 37.5-25MG 1 EACH CAP PO SCH (08:40)
[2017-09-21] MEDS: FORMOTEROL FUMARATE 20 MCG/2 ML NEBU INHALATION SCH ×2 (08:50→19:37)
[2017-09-21] MEDS: IPRATROPIUM-ALBUTEROL 3 ML NEB INHALATION SCH ×4 (08:50→19:22)
[2017-09-21] MEDS: BUDESONIDE 1 MG/2 ML NEBU INHALATION SCH ×2 (08:50→19:22)
[2017-09-21] MEDS: CO Q-10 100MG PO SCH (11:29)
[2017-09-21 11:36] LABS: Glucose,Whole Blood 182 mg/dL (75-99)
--- NOTE | 2017-09-21 11:44 | P.PN ---
Subjective Progress Note Date: 09/21/17 Patient has no complaints wanting to go home, currently on 2-3 L with good oxygen saturations, the patient wanting to go home however still pretty dyspneic on exertion. Objective - Vital Signs Vital signs: Vital Signs Temp 97.4 F L 09/21/17 08:00 Pulse 80 09/21/17 09:11 Resp 22 09/21/17 08:00 BP 139/72 09/21/17 08:00 Pulse Ox 94 L 09/21/17 08:00 Intake & Output 09/20/17 09/21/17 09/21/17 18:59 06:59 18:59 Intake Total 920 0 200 Output Total 650 400 Balance 270 -400 200 Weight 79.8 kg Intake: Intake, IV Titration 200 Amount Sodium Chloride 0.9% 1, 200 000 ml @ 100 mls/hr IV . Q10H [facility] Rx#:[id number] Oral 720 0 200 Output: Urine 650 400 Other: # Voids 1 1 # Bowel Movements 1 - Exam Constitutional: No acute distress, conversant, pleasant Eyes: Anicteric sclerae, moist conjunctiva, no lid-lag, PERRLA ENMT: NC/AT,Oropharynx clear, no erythema, exudates Neck:Supple, FROM, no masses, or JVD, No carotid bruits; No thyromegaly Lungs: Wheezes are improving 2 L nasal cannula, Clear to percussion, Normal respiratory effort, no accessory muscle use Cardiovascular: Heart regular in rate and rhythm, No murmurs, gallops, or rubs no peripheral edema Abdominal: Soft Nontender, nom distended, no guarding, no rebound or rigidity, Normoactive bowel sounds No hepatomegaly, No splenomegaly, No palpable mass No abdominal wall hernia noted Skin: Normal temperature, tone, texture, turgor, No induration No subcutaneous nodules, No rash, lesions, No ulcers Extremities:No digital cyanosis No clubbing, Pedal pulses intact and symmetrical Radial pulses intact and symmetrical Normal gait and station, No calf tenderness Psychiatric: Alert and oriented to person, place and time, Appropriate affect Intact judgement Neuro: Muscles Strength 5/5 in all 4 extremities, Sensation to light touch grossly present throughout, Cranial nerves II-XII grossly intact. No focal sensory deficits - Labs CBC & Chem 7: 09/18/17 08:45 09/19/17 17:41 Labs: Abnormal Lab Results - Last 24 Hours (Table) 09/20/17 09/20/17 09/21/17 Range/Units 16:22 21:13 06:02 POC Glucose (mg/dL) 169 H 155 H 157 H (75-99) mg/dL 09/21/17 Range/Units 11:33 POC Glucose (mg/dL) 182 H (75-99) mg/dL Microbiology - Last 24 Hours (Table) 09/18/17 14:01 Blood Culture - Preliminary Blood No Growth after 48 hours 09/18/17 13:45 Blood Culture - Preliminary Blood No Growth after 48 hours Assessment and Plan (1) Acute respiratory failure with hypoxemia Narrative/Plan: * Secondary to acute COPD exacerbation, triggered By viral bronchitis * Continue with supplemental oxygen we'll wean to keep saturations 90- 92% * Continue with scheduled DuoNeb and when necessary DuoNeb's * Pulmonary following, appreciate recommendations Current Visit: Yes Status: Acute Code(s): J96.01 - ACUTE RESPIRATORY FAILURE WITH HYPOXIA SNOMED Code(s): 568934557 (2) Acute exacerbation of chronic obstructive airways disease Narrative/Plan: * Triggered by viral bronchitis * Continue with systemic steroids as well as inhaled formoterol and budesonide, Augmentin and DuoNeb therapy Current Visit: Yes Status: Acute Code(s): J44.1 - CHRONIC OBSTRUCTIVE PULMONARY DISEASE W (ACUTE) EXACERBATION SNOMED Code(s): 589543215 (3) Essential hypertension Narrative/Plan: * Blood pressure stable controlled on home regimen Current Visit: Yes Status: Acute Code(s): I10 - ESSENTIAL (PRIMARY) HYPERTENSION SNOMED Code(s): 81625555 (4) Headache Narrative/Plan: * Initiated therapy with Tylenol Current Visit: Yes Status: Resolved Code(s): R51 - HEADACHE SNOMED Code(s) : 93196162 Plan: Patient is improving slowly but I don't think she is ready to go home yet she still pretty dyspneic on exertion despite wearing oxygen, probably would be ready for discharge in the next 24-48 hours The patient is stable for transfer off of 6 selective to the general medical floor
--- NOTE | 2017-09-21 16:02 | P.PN ---
Subjective Progress Note Date: 09/21/17 Principal diagnosis: Acute hypoxic respiratory failure secondary to COPD exacerbation. Progress note dated 09/20/2017 This is a 62-year-old female admitted with a diagnosis of acute hypoxemic respiratory failure secondary to COPD exacerbation. Chest x-ray was negative for pneumonia. She likely does have a purulent tracheobronchitis. The severity of her COPD is not not known. She has a history of ongoing tobacco use. She still smokes less than a pack a day has been smoking for 44 years. In addition, she has a history of hypertension anxiety DJD hypothyroidism bilateral knee arthroscopy tubal ligation and uterine ablation. From the pulmonary standpoint she is doing well. She likely is ready for discharge in next 24th 48 hrs. She is still short of breath particularly when she exerts himself. Denies any significant cough or wheeze. Not producing any phlegm. No fever or chills. No nausea vomiting or diarrhea. On 09/21/2017 patient seen in follow-up on medical surgical floor. Did not require BiPAP support last night. Currently on 3 L per nasal cannula, with O2 sat at 94%. She remains afebrile, hemodynamically stable. Lung sounds for some scattered end expiratory wheezes, but overall much improved since admission. No new chest x-ray lab work today. Patient remains on nebulized treatments, Pulmicort, Perforomist, and oral Augmentin in addition to IV steroids. Patient has been ambulating to the bathroom, tolerating it fairly well. Objective - Vital Signs Vital signs: Vital Signs Temp 97.4 F L 09/21/17 08:00 Pulse 80 09/21/17 15:51 Resp 22 09/21/17 08:00 BP 139/72 09/21/17 08:00 Pulse Ox 94 L 09/21/17 08:00 Intake & Output 09/20/17 09/21/17 09/21/17 18:59 06:59 18:59 Intake Total 920 0 200 Output Total 650 400 Balance 270 -400 200 Weight 79.8 kg Intake: Intake, IV Titration 200 Amount Sodium Chloride 0.9% 1, 200 000 ml @ 100 mls/hr IV . Q10H [facility] Rx#:[id number] Oral 720 0 200 Output: Urine 650 400 Other: # Voids 1 1 # Bowel Movements 1 - Exam GENERAL EXAM: Alert, pleasant, 62-year-old white female comfortable in no apparent distress. HEAD: Normocephalic/atraumatic. EYES: Normal reaction of pupils, equal size. Conjunctiva pink, sclera white. NOSE: Clear with pink turbinates. THROAT: No erythema or exudates. NECK: No masses, no JVD, no thyroid enlargement, no adenopathy. CHEST: No chest wall deformity. Symmetrical expansion. LUNGS: Equal air entry with scattered end expiratory wheezes CVS: Regular rate and rhythm, normal S1 and S2, no gallops, no murmurs, no rubs ABDOMEN: Soft, nontender. No hepatosplenomegaly, normal bowel sounds, no guarding or rigidity. EXTREMITIES: No clubbing, no edema, no cyanosis, 2+ pulses and upper and lower extremities. MUSCULOSKELETAL: Muscle strength and tone normal. SPINE: No scoliosis or deformity SKIN: No rashes CENTRAL NERVOUS SYSTEM: Alert and oriented -3. No focal deficits, tone is normal in all 4 extremities. PSYCHIATRIC: Alert and oriented -3. Appropriate affect. Intact judgment and insight. - Labs CBC & Chem 7: 09/18/17 08:45 09/19/17 17:41 Labs: Abnormal Lab Results - Last 24 Hours (Table) 09/20/17 09/20/17 09/21/17 Range/Units 16:22 21:13 06:02 POC Glucose (mg/dL) 169 H 155 H 157 H (75-99) mg/dL 09/21/17 Range/Units 11:33 POC Glucose (mg/dL) 182 H (75-99) mg/dL Microbiology - Last 24 Hours (Table) 09/18/17 14:01 Blood Culture - Preliminary Blood No Growth after 48 hours 09/18/17 13:45 Blood Culture - Preliminary Blood No Growth after 48 hours Assessment and Plan Plan: Assessment: #1. Acute hypoxic respiratory failure secondary to acute COPD exacerbation complicated by purulent tracheobronchitis, chest x-ray from 09/18/2017 was negative for any acute process #2. COPD, severity of which is unknown at this time #3. Nicotine dependence, ongoing, patient carries over 44 [id number] smoking history on and off. Currently down to less than a pack a day #4. Hypertension, hyperlipidemia #5. Anxiety #6. Osteoarthritis #7. Hypothyroidism #8. Bilateral knee arthroscopies #9. Tubal ligation, uterine ablation history Plan: Continue current plan of care, continue oral Augmentin, we will switch the IV Solu-Medrol to oral prednisone. Continue DuoNeb, continue Pulmicort and Perforomist. Patient may be considered for discharge in next 24 hours, she continues to improve. She will need home oxygen assessment. I performed a history & physical examination of the patient and discussed their management with my nurse practitioner, Catherine Rodriguez. I reviewed the nurse practitioner's note and agree with the documented findings and plan of care. Lung sounds are few scattered end expiratory wheezes. The findings and the impression was discussed with the patient. I attest to the documentation by the nurse practitioner. Time with Patient: Less than 30
[2017-09-21 16:18] LABS: Anion Gap 9 mmol/L; Blood Urea Nitrogen 23 mg/dL (7-17); Calcium 10.4 mg/dL (8.4-10.2); Carbon Dioxide 29 mmol/L (22-30); Chloride 102 mmol/L (98-107); Glucose 164 mg/dL (74-99); Potassium 3.6 mmol/L (3.5-5.1); Sodium 140 mmol/L (137-145)
[2017-09-21 17:18] LABS: Glucose,Whole Blood 186 mg/dL (75-99)
[2017-09-21 21:41] LABS: Glucose,Whole Blood 150 mg/dL (75-99)
[2017-09-21] MEDS: ATORVASTATIN 80 MG TAB PO SCH (22:10)
[2017-09-21] MEDS: POTASSIUM CHLORIDE ER 20 MEQ TAB.ER PO SCH (22:11)
[2017-09-21] MEDS: ALPRAZolam 0.5 MG TAB PO SCH (22:11)
[2017-09-22] MEDS: LEVOTHYROXINE 50 MCG TAB PO SCH (06:28)
[2017-09-22 07:27] LABS: Glucose,Whole Blood 107 mg/dL (75-99)
[2017-09-22] MEDS: INSULIN ASPART 100 UNIT/ML 1 ML 10 ML VIAL SQ SCH (07:32)
[2017-09-22 07:43] VITALS: BP 137/65; RESP 22; TEMP 98
[2017-09-22] MEDS: FORMOTEROL FUMARATE 20 MCG/2 ML NEBU INHALATION SCH (07:46)
[2017-09-22] MEDS: BUDESONIDE 1 MG/2 ML NEBU INHALATION SCH (07:46)
[2017-09-22] MEDS: IPRATROPIUM-ALBUTEROL 3 ML NEB INHALATION SCH ×2 (07:46→11:15)
[2017-09-22 08:18] VITALS: PULSE 96
[2017-09-22] MEDS: AMOXIC-POT CLAV 875-125MG 1 EACH TAB PO SCH (08:53)
[2017-09-22] MEDS: amLODIPine 10 MG TAB PO SCH (08:54)
[2017-09-22] MEDS: ASCORBIC ACID 500 MG TAB PO SCH (08:54)
[2017-09-22] MEDS: Z-BEC PO SCH (08:54)
[2017-09-22] MEDS: SODIUM CHLORIDE 0.9% 1,000 ML IV SCH (08:54)
[2017-09-22] MEDS: TRIAMTERENE-HCTZ 37.5-25MG 1 EACH CAP PO SCH (08:55)
[2017-09-22] MEDS: PANTOPRAZOLE 40 MG TABLET PO SCH (08:55)
[2017-09-22] MEDS: CHOLECALCIFEROL 1,000 UNIT TAB PO SCH (08:55)
[2017-09-22] MEDS: CO Q-10 100MG PO SCH (08:56)
[2017-09-22] MEDS: ENOXAPARIN 40 MG/0.4 ML SYRINGE SQ SCH (08:56)
[2017-09-22] MEDS ORDERED: predniSONE 20 MG TAB PO SCH (09:00)
[2017-09-22] MEDS ORDERED: PNEUMOCOCCAL VACC-PNEUMOVAX 23 25 MCG/0.5 ML VIAL IM ONE (11:31)
--- NOTE | 2017-09-22 12:55 | P.DS ---
Providers Date of admission: 09/18/17 10:43 Attending physician: Elton Agarwal MD Consults: 09/18/17 13:23 Consult Physician Routine Consulting Provider: Jian Lr Reason/Comments: COPD newonset Do you want consulting provider notified?: Yes Primary care physician: Ollie Patten - Discharge Diagnosis(es) (1) Acute respiratory failure with hypoxemia Current Visit: Yes Status: Acute (2) Acute exacerbation of chronic obstructive airways disease Current Visit: Yes Status: Acute (3) Essential hypertension Current Visit: Yes Status: Acute (4) Headache Current Visit: Yes Status: Resolved Hospital Course: The patient is a 62-year-old female with a past with a history of smoking that presented with progressive worsening shortness of breath and productive cough she was subsequently admitted for acute COPD exacerbation and placed on supplemental oxygen and started on scheduled and when necessary DuoNeb bronchodilator breathing treatments, Along with systemic steroids with IV Solu-Medrol and empir ic IV antibiotics with Rocephin and azithromycin she did have a leukocytosis on presentation there was concern for sepsis, however no underlying acute process was seen on her chest x-ray and her antibiotic regimen was de-escalated to Augmentin. Pulmonary Dr. Lr was consulted to see the patient and he added inhaled formoterol and budesonide to her regimen. The patient was noted to repeatedly have ambulatory desaturations on room air down in the 80s, the home O2 evaluation was done and the patient was able to qualify for supplemental oxygen 3 L via nasal cannula at rest and with exertion , as her respiratory status continued to improve with diminished wheezes. She was subsequently discharged home in stable condition with plans to follow- up in the outpatient setting with pulmonary. New prescription is a discharge include Ventolin inhaler Augmentin, Symbicort., DuoNeb nebulizer and a prednisone taper. This discharge process took approximately 35 minutes Constitutional: No acute distress, conversant, pleasant Eyes: Anicteric sclerae, moist conjunctiva, no lid-lag, PERRLA ENMT: NC/AT,Oropharynx clear, no erythema, exudates Neck:Supple, FROM, no masses, or JVD, No carotid bruits; No thyromegaly Lungs: Diminished wheezes gradually improving over time, Clear to percussion, Normal respiratory effort, no accessory muscle use Cardiovascular: Heart regular in rate and rhythm, No murmurs, gallops, or rubs no peripheral edema Abdominal: Soft Nontender, nom distended, no guarding, no rebound or rigidity, Normoactive bowel sounds No hepatomegaly, No splenomegaly, No palpable mass No abdominal wall hernia noted Skin: Normal temperature, tone, texture, turgor, No induration No subcutaneous nodules, No rash, lesions, No ulcers Extremities:No digital cyanosis No clubbing, Pedal pulses intact and symmetrical Radial pulses intact and symmetrical Normal gait and station, No calf tenderness Psychiatric: Alert and oriented to person, place and time, Appropriate affect Intact judgement Neuro: Muscles Strength 5/5 in all 4 extremities, Sensation to light touch grossly present throughout, Cranial nerves II-XII grossly intact. No focal sensory deficits Patient Condition at Discharge: Fair Plan - Discharge Summary Discharge Rx Participant: No New Discharge Prescriptions: New Albuterol Inhaler [Ventolin Hfa Inhaler] 1 - 2 puff INHALATION Q6HR PRN 30 Days #1 inhaler PRN Reason: Shortness Of Breath Amoxic-Pot Clav 875-125Mg [Augmentin 875-125] 1 tab PO Q12HR 2 Days #4 tablet Budesonide-Formot 160-4.5 Mcg [Symbicort 160-4.5 Mcg Inhaler] 2 puff INHALATION BID 30 Days #1 inhaler Ipratropium-Albuterol Nebulize [Duoneb 0.5 mg-3 mg/3 ml Soln] 3 ml INHALATION QID 30 Days #3 box predniSONE 10 mg PO DAILY 16 Days #40 tab Continue ALPRAZolam [Xanax] 0.5 mg PO HS amLODIPine [Norvasc] 10 mg PO DAILY Potassium Chloride [Klor-Con 20] 40 meq PO HS Cholecalciferol [Vitamin D3] 1,000 unit PO DAILY Atorvastatin [Lipitor] 80 mg PO HS Ascorbic Acid [Vitamin C] 500 mg PO DAILY Triamterene-Hctz 37.5-25Mg [Dyazide 37.5-25 Capsule] 1 cap PO DAILY [place]-3 Fatty Acids/Fish Oil [Fish Oil 1,000 mg Softgel] 1 cap PO DAILY Levothyroxine Sodium [Synthroid] 50 mcg PO DAILY Vitamin B Complex 1 cap PO DAILY Ubidecarenone [Co Q-10] 100 mg PO DAILY Discontinued Ibuprofen [Motrin] 600 mg PO Q8HR PRN PRN Reason: Pain Discharge Medication List ALPRAZolam [Xanax] 0.5 mg PO HS 09/18/17 [History] Ascorbic Acid [Vitamin C] 500 mg PO DAILY 09/18/17 [History] Atorvastatin [Lipitor] 80 mg PO HS 09/18/17 [History] Cholecalciferol [Vitamin D3] 1,000 unit PO DAILY 09/18/17 [History] Levothyroxine Sodium [Synthroid] 50 mcg PO DAILY 09/18/17 [History] [place]-3 Fatty Acids/Fish Oil [Fish Oil 1,000 mg Softgel] 1 cap PO DAILY [History] Potassium Chloride [Klor-Con 20] 40 meq PO HS 09/18/17 [History] Triamterene-Hctz 37.5-25Mg [Dyazide 37.5-25 Capsule] 1 cap PO DAILY 09/18/17 [ History] Ubidecarenone [Co Q-10] 100 mg PO DAILY 09/18/17 [History] Vitamin B Complex 1 cap PO DAILY 09/18/17 [History] amLODIPine [Norvasc] 10 mg PO DAILY 09/18/17 [History] Albuterol Inhaler [Ventolin Hfa Inhaler] 1 - 2 puff INHALATION Q6HR PRN 30 Days #1 inhaler 09/22/17 [Rx] Amoxic-Pot Clav 875-125Mg [Augmentin 875-125] 1 tab PO Q12HR 2 Days #4 tablet [Rx] Budesonide-Formot 160-4.5 Mcg [Symbicort 160-4.5 Mcg Inhaler] 2 puff INHALATION BID 30 Days #1 inhaler 09/22/17 [Rx] Ipratropium-Albuterol Nebulize [Duoneb 0.5 mg-3 mg/3 ml Soln] 3 ml INHALATION QID 30 Days #3 box 09/22/17 [Rx] predniSONE 10 mg PO DAILY 16 Days #40 tab 09/22/17 [Rx] Follow up Appointment(s)/Referral(s): Jian Lr DO [Doctor of Osteopathic Medicine] - 10/02/17 2:15 pm [facility], [NON-STAFF] - Ollie Patten MD [Primary Care Provider] - 09/24/17 10:45 am Patient Instructions/Handouts: How to Stop Smoking (DC), COPD (Chronic Obstructive Pulmonary Disease) (DC) Discharge Disposition: HOME SELF-CARE
--- NOTE | 2017-09-22 13:16 | P.PN ---
Subjective Progress Note Date: 09/22/17 Principal diagnosis: Acute hypoxic respiratory failure secondary to COPD exacerbation. Progress note dated 09/20/2017 This is a 62-year-old female admitted with a diagnosis of acute hypoxemic respiratory failure secondary to COPD exacerbation. Chest x-ray was negative for pneumonia. She likely does have a purulent tracheobronchitis. The severity of her COPD is not not known. She has a history of ongoing tobacco use. She still smokes less than a pack a day has been smoking for 44 years. In addition, she has a history of hypertension anxiety DJD hypothyroidism bilateral knee arthroscopy tubal ligation and uterine ablation. From the pulmonary standpoint she is doing well. She likely is ready for discharge in next 24 48 hrs. She is still short of breath particularly when she exerts himself. Denies any significant cough or wheeze. Not producing any phlegm. No fever or chills. No nausea vomiting or diarrhea. On 09/21/2017 patient seen in follow-up on medical surgical floor. Did not require BiPAP support last night. Currently on 3 L per nasal cannula, with O2 sat at 94%. She remains afebrile, hemodynamically stable. Lung sounds for some scattered end expiratory wheezes, but overall much improved since admission. No new chest x-ray lab work today. Patient remains on nebulized treatments, Pulmicort, Perforomist, and oral Augmentin in addition to IV steroids. Patient has been ambulating to the bathroom, tolerating it fairly well. On 09/22/2017 patient seen in follow-up. She reports feeling much better, in terms of dyspnea. Curt[place] down to 3 L per nasal cannula with O2 sat 96%. Vital signs are stable, she remains afebrile. Lung sounds are positive for minimal end expiratory wheezing, but overall much improved since admission. No new chest x-ray or lab work today. Her sputum is now clear. Patient is able to ambulate with portable oxygen in the hallway, was able to tolerate it well. Her pulmonary standpoint she is clear for discharge today, home oxygen nebulizer machine has been set up and will be delivered upon patient's discharge. Objective - Vital Signs Vital signs: Vital Signs Temp 98.0 F 09/22/17 07:00 Pulse 96 09/22/17 08:17 Resp 22 09/22/17 07:00 BP 137/65 09/22/17 07:00 Pulse Ox 96 09/22/17 07:52 Intake & Output 09/21/17 09/22/17 09/22/17 18:59 06:59 18:59 Intake Total 200 Output Total 400 Balance 200 -400 Weight 79.8 kg Intake: Oral 200 Output: Urine 400 Other: Voiding Method Toilet Toilet # Voids 1 1 1 # Bowel Movements 1 - Exam GENERAL EXAM: Alert, pleasant, 62-year-old white female comfortable in no apparent distress. HEAD: Normocephalic/atraumatic. EYES: Normal reaction of pupils, equal size. Conjunctiva pink, sclera white. NOSE: Clear with pink turbinates. THROAT: No erythema or exudates. NECK: No masses, no JVD, no thyroid enlargement, no adenopathy. CHEST: No chest wall deformity. Symmetrical expansion. LUNGS: Equal air entry with scattered end expiratory wheezes CVS: Regular rate and rhythm, normal S1 and S2, no gallops, no murmurs, no rubs ABDOMEN: Soft, nontender. No hepatosplenomegaly, normal bowel sounds, no guarding or rigidity. EXTREMITIES: No clubbing, no edema, no cyanosis, 2+ pulses and upper and lower extremities. MUSCULOSKELETAL: Muscle strength and tone normal. SPINE: No scoliosis or deformity SKIN: No rashes CENTRAL NERVOUS SYSTEM: Alert and oriented -3. No focal deficits, tone is normal in all 4 extremities. PSYCHIATRIC: Alert and oriented -3. Appropriate affect. Intact judgment and insight. - Labs CBC & Chem 7: 09/18/17 08:45 09/21/17 15:48 Labs: Abnormal Lab Results - Last 24 Hours (Table) 09/21/17 09/21/17 09/21/17 Range/Units 15:48 17:15 20:57 BUN 23 H (7-17) mg/dL Glucose 164 H (74-99) mg/dL POC Glucose (mg/dL) 186 H 150 H (75-99) mg/dL Calcium 10.4 H (8.4-10.2) mg/dL 09/22/17 Range/Units 07:05 BUN (7-17) mg/dL Glucose (74-99) mg/dL POC Glucose (mg/dL) 107 H (75-99) mg/dL Calcium (8.4-10.2) mg/dL Microbiology - Last 24 Hours (Table) 09/18/17 14:01 Blood Culture - Preliminary Blood No Growth after 72 hours 09/18/17 13:45 Blood Culture - Preliminary Blood No Growth after 72 hours Assessment and Plan Plan: Assessment: #1. Acute hypoxic respiratory failure secondary to acute COPD exacerbation complicated by purulent tracheobronchitis, chest x-ray from 09/18/2017 was negative for any acute process #2. COPD, severity of which is unknown at this time #3. Nicotine dependence, ongoing, patient carries over 44 [id number] smoking history on and off. Currently down to less than a pack a day #4. Hypertension, hyperlipidemia #5. Anxiety #6. Osteoarthritis #7. Hypothyroidism #8. Bilateral knee arthroscopies #9. Tubal ligation, uterine ablation history Plan: Patient continues to improve, home oxygen assessment was done, and patient does qualify for home oxygen, dropped to 83% on room air. Lung sounds have improved , only minimal end expiratory wheezing noted. She has been ambulating, vital signs remain stable, she is afebrile. Home oxygen and nebulizer machine have been arranged and will be delivered upon patient's discharge. Patient will need to complete 2 more days of Augmentin, she woke continue on Symbicort, DuoNeb nebulizer treatments, she will be given albuterol rescue inhaler, and a prednisone taper. She was strongly advised to quit smoking again. Follow-up with Dr. Lr in the office in 7 days. I performed a history & physical examination of the patient and discussed their management with my nurse practitioner, Catherine Rodriguez. I reviewed the nurse practitioner's note and agree with the documented findings and plan of care. Lung sounds are few scattered end expiratory wheezes. The findings and the impression was discussed with the patient. I attest to the documentation by the nurse practitioner. Time with Patient: Less than 30
--- NOTE | 2017-09-22 16:13 | P.PN ---
Subjective Progress Note Date: 09/22/17 Patient has no complaints wanting to go home, currently on 2-3 L with good oxygen saturations, the patient wanting to go home however still pretty dyspneic on exertion. Objective - Vital Signs Vital signs: Vital Signs Temp 98.0 F 09/22/17 07:00 Pulse 96 09/22/17 08:17 Resp 22 09/22/17 07:00 BP 137/65 09/22/17 07:00 Pulse Ox 96 09/22/17 07:52 Intake & Output 09/21/17 09/22/17 09/22/17 18:59 06:59 18:59 Intake Total 200 Output Total 400 Balance 200 -400 Weight 79.8 kg Intake: Oral 200 Output: Urine 400 Other: Voiding Method Toilet Toilet # Voids 1 1 1 # Bowel Movements 1 - Exam Constitutional: No acute distress, conversant, pleasant Eyes: Anicteric sclerae, moist conjunctiva, no lid-lag, PERRLA ENMT: NC/AT,Oropharynx clear, no erythema, exudates Neck:Supple, FROM, no masses, or JVD, No carotid bruits; No thyromegaly Lungs: Wheezes are improving 2 L nasal cannula, Clear to percussion, Normal respiratory effort, no accessory muscle use Cardiovascular: Heart regular in rate and rhythm, No murmurs, gallops, or rubs no peripheral edema Abdominal: Soft Nontender, nom distended, no guarding, no rebound or rigidity, Normoactive bowel sounds No hepatomegaly, No splenomegaly, No palpable mass No abdominal wall hernia noted Skin: Normal temperature, tone, texture, turgor, No induration No subcutaneous nodules, No rash, lesions, No ulcers Extremities:No digital cyanosis No clubbing, Pedal pulses intact and symmetrical Radial pulses intact and symmetrical Normal gait and station, No calf tenderness Psychiatric: Alert and oriented to person, place and time, Appropriate affect Intact judgement Neuro: Muscles Strength 5/5 in all 4 extremities, Sensation to light touch grossly present throughout, Cranial nerves II-XII grossly intact. No focal sensory deficits - Labs CBC & Chem 7: 09/18/17 08:45 09/21/17 15:48 Labs: Abnormal Lab Results - Last 24 Hours (Table) 09/21/17 09/21/17 09/21/17 Range/Units 15:48 17:15 20:57 BUN 23 H (7-17) mg/dL Glucose 164 H (74-99) mg/dL POC Glucose (mg/dL) 186 H 150 H (75-99) mg/dL Calcium 10.4 H (8.4-10.2) mg/dL 09/22/17 Range/Units 07:05 BUN (7-17) mg/dL Glucose (74-99) mg/dL POC Glucose (mg/dL) 107 H (75-99) mg/dL Calcium (8.4-10.2) mg/dL Microbiology - Last 24 Hours (Table) 09/18/17 14:01 Blood Culture - Preliminary Blood No Growth after 96 hours 09/18/17 13:45 Blood Culture - Preliminary Blood No Growth after 96 hours Assessment and Plan (1) Acute respiratory failure with hypoxemia Narrative/Plan: * Secondary to acute COPD exacerbation, triggered By viral bronchitis * Continue with supplemental oxygen we'll wean to keep saturations 90- 92% * Continue with scheduled DuoNeb and when necessary DuoNeb's * Pulmonary following, appreciate recommendations Status: Acute Code(s): J96.01 - ACUTE RESPIRATORY FAILURE WITH HYPOXIA SNOMED Code(s): 625652112 (2) Acute exacerbation of chronic obstructive airways disease Narrative/Plan: * Triggered by viral bronchitis * Continue with systemic steroids as well as inhaled formoterol and budesonide, Augmentin and DuoNeb therapy Status: Acute Code(s): J44.1 - CHRONIC OBSTRUCTIVE PULMONARY DISEASE W (ACUTE ) EXACERBATION SNOMED Code(s): 136501841 (3) Essential hypertension Narrative/Plan: * Blood pressure stable controlled on home regimen Status: Acute Code(s): I10 - ESSENTIAL (PRIMARY) HYPERTENSION SNOMED Code(s) : 76085006 (4) Headache Narrative/Plan: * Initiated therapy with Tylenol Status: Resolved Code(s): R51 - HEADACHE SNOMED Code(s): 00179767
== END 2017-09-22 13:17 | disposition home health service (06) | DRG 189 ==
LOC: EC 08:20 → 6SEL 10:43 → 4MS4W 09-21 11:47
PROVIDERS: ADMIT Family Medicine; ATTEND Family Medicine
PROC: 5A09457 Assistance with Respiratory Ventilation, 24-96 Consecutive Hours, Continuous Positive Airway Pressure (ICD-10-PCS; principal; 2017-09-18)
DX: J96.01 Acute respiratory failure with hypoxia (principal); J44.1 Chronic obstructive pulmonary disease with (acute) exacerbation; J20.8 Acute bronchitis due to other specified organisms; E03.9 Hypothyroidism, unspecified; E78.5 Hyperlipidemia, unspecified; F17.210 Nicotine dependence, cigarettes, uncomplicated; F41.9 Anxiety disorder, unspecified; I10 Essential (primary) hypertension; M19.90 Unspecified osteoarthritis, unspecified site; R51 Headache; D72.829 Elevated white blood cell count, unspecified; Z79.899 Other long term (current) drug therapy; Z91.040 Latex allergy status; Z98.51 Tubal ligation status
CPT/HCPCS: 36415; 36600; 71045; 71046; 80048; 80053; 81001; 82550; 82553; 82805; 83735; 83880; 84484; 85025; 85610; 85730; 87040; 87502; 90732; 93005; 94640; 94644; 94660; 94760; 96361; 96365; 96366; 96375; 99291

== ENCOUNTER → 2018-07-19 | Outpatient (CLI) | payer BC ==
--- NOTE | 2018-07-22 10:58 | MM ---
Reason for exam: screening (asymptomatic). Last mammogram was performed 3 years ago. History: Patient is postmenopausal. Took hormonal contraceptives for 10 years beginning at age 17. Physical Findings: A clinical breast exam by your physician is recommended on an annual basis and results should be correlated with mammographic findings. MG Screening Mammo w CAD Bilateral CC and MLO view(s) were taken. Prior study comparison: August 03, 2015, bilateral MG screening mammo w CAD. July 19, 2014, bilateral MG screening mammo w CAD. There are scattered fibroglandular densities. No significant changes when compared with prior studies. ASSESSMENT: Negative, BI-RAD 1 RECOMMENDATION: Routine screening mammogram of both breasts in 1 year.
== END | disposition home or self-care (01) ==
LOC: RADMAMWWP 10:37
PROVIDERS: ATTEND Internal Medicine
DX: Z12.31 Encounter for screening mammogram for malignant neoplasm of breast (principal)
CPT/HCPCS: 77067

== ENCOUNTER → 2021-02-25 | Outpatient (CLI) | payer MEDICARE ==
--- NOTE | 2021-02-25 16:05 | NM ---
Nuclear medicine hepatobiliary scan. HISTORY: Pain. DOSAGE: The patient received 8 ounces of ensure plus and 4.1 mCi of Technetium 99m Choletec. FINDINGS: There is normal hepatic extraction. The gallbladder is seen by 20 minutes. There is bilia ry to bowel clearance by 20 minutes. Ejection fraction is 77%. IMPRESSION: 1. Normal hepatobiliary exam
== END | disposition home or self-care (01) ==
LOC: RADNMMAIN 12:35
PROVIDERS: ATTEND Internal Medicine
DX: K80.20 Calculus of gallbladder without cholecystitis without obstruction (principal)
CPT/HCPCS: 78226; A9537

== ENCOUNTER → 2021-08-26 | Outpatient (CLI) | payer MEDICARE ==
--- NOTE | 2021-08-26 12:32 | CTL ---
EXAMINATION TYPE: CT Low Dose Lung DATE OF EXAM ORDERED: 08/26/2021 COMPARISON: None HISTORY: . Low Dose CT Lung Screening CT DLP: 112.[address] CTDI: 3.1 mGy IV CONTRAST USED: None. SCREENING VISIT: First visit COMPARISON: None. TECHNIQUE: Low dose computed tomography scan was performed through the chest at 1 millimeter thick se ctions and reconstructed images in the coronal plane at [address] DIAGNOSTIC QUALITY: Satisfactory FINDINGS: LUNG NODULES: Not presentLeft lung: no nodules identified.Right lung: no nodules identified. LUNGS: COPD: Severity: Mild. Parenchymal scarring seen bilaterally. Fibrosis: Severity:None Lymph nodes: None Other findings: None RIGHT PLEURAL SPACE: Effusion: None Calcification: None Thickening: None Pneumothorax: None LEFT PLEURAL SPACE: Effusion: None Calcification: None Thickening: None Pneumothorax: None HEART: Heart Size: Mildly enlarged Coronary calcification: Mild Pericardial effusion: None OTHER FINDINGS: Upper abdomen: Small gallstones identified. Small hiatal hernia seen. Bony thorax: Degenerative changes Supraclavicular region: No significant abnormalityOther: No significant abnormalityI IMPRESSION: Benign FOLLOW UP CT CHEST RECOMMENDATION: Follow-up screening in one year CT LUNG RAD: LUNG RAD CATEGORY 1 negative
== END | disposition home or self-care (01) ==
LOC: RADCTMAIN 12:03
PROVIDERS: ATTEND Internal Medicine
DX: Z12.2 Encounter for screening for malignant neoplasm of respiratory organs (principal); Z87.891 Personal history of nicotine dependence
CPT/HCPCS: 71271

== ENCOUNTER → 2021-09-16 | Outpatient (CLI) | payer MEDICARE ==
--- NOTE | 2021-09-16 16:33 | NM ---
EXAMINATION TYPE: NM parathyroid w/spect DATE OF EXAM: 09/16/2021 COMPARISON: NONE HISTORY: Hyperparathyroidism TECHNIQUE: Following administration of 25.3 mCi Tc99m Sestamibi. Anterior projection images of the neck and ches t were obtained 20 minutes and 3.75 hours post injection. SPECT images of the neck and chest were ob tained and reconstructed in three axes. FINDINGS: Thyroid tracer washout: Delayed images demonstrate near-complete tracer washout from the thyroid. Parathyroid uptake: None. The two-hour delayed images do not demonstrate any focal abnormal persisten t uptake in the region of the parathyroid glands to suggest parathyroid adenoma. Normal uptake: There is physiological tracer uptake in the myocardium, salivary glands, and thyroid g land. Delayed images show mild uptake in the distribution of the thyroid IMPRESSION: Normal parathyroid imaging study. No evidence for mediastinal uptake to suggest mediastinal parathyro id adenoma
== END | disposition home or self-care (01) ==
LOC: RADNMMAIN 10:38
PROVIDERS: ATTEND Internal Medicine
DX: E21.3 Hyperparathyroidism, unspecified (principal)
CPT/HCPCS: 78071; A9500

== ENCOUNTER → 2021-11-06 | Outpatient (CLI) | payer MEDICARE ==
--- NOTE | 2021-11-06 16:39 | US ---
EXAMINATION TYPE: US kidneys/renal and bladder DATE OF EXAM: 11/06/2021 COMPARISON: NONE CLINICAL HISTORY: E21.0 PRIMARY HYPERPARATHYROIDISM. EXAM MEASUREMENTS: Right Kidney: 9.7 x 4.1 x 4.0 cm Left Kidney: 9.7 x 4.3 x 4.4 cm Right Kidney: No hydronephrosis or masses seen Left Kidney: inferior echogenic foci, small stone vs. calcified artery, cyst measuring 1.4 x 1.4 x 1 .3 Bladder: wnl There is no evidence for hydronephrosis at this point in time. No nephrolithiasis is seen. No cristóbal s are identified. Cortical medullary differentiation is maintained. The urinary bladder is anechoic. IMPRESSION: Cortical cyst associated with the lower pole the left kidney appears simple.
[2021-11-06 17:21] LABS: Albumin 3.8 g/dL (3.5-5.0); Calcium 9.7 mg/dL (8.4-10.2); Potassium 3.5 mmol/L (3.5-5.1); Total Bilirubin 0.5 mg/dL (0.2-1.3); Total Protein 6.6 g/dL (6.3-8.2)
--- NOTE | 2021-11-07 11:35 | BD ---
EXAMINATION TYPE: Axial Bone Density DATE OF EXAM: 11/06/2021 COMPARISON: NONE CLINICAL HISTORY: 66 years year old Female. ICD-10 CODE: E21.0 PRIMARY HYPERPARATHYROIDISM Height: 61.2 IN Weight: 181 LBS FRAX RISK QUESTIONS: Secondary Osteoporosis: 3. Menopause before 45: AGE 39 RISK FACTORS HISTORY OF: Active: YES Postmenopausal woman: AGE 39 MEDICATIONS: Thyroid Medications: YES Which medication: Synthroid How Lon+ YEARS Additional Medications: SYNTHROID, CARVEDILOL, PANTOPREZOLE, ATORVASTATIN, AMLODIPINE, EZETIMIBE, CY CLOBENZAPRINE, ALPRAZOLAM, FISH OIL, COQ10 EXAM MEASUREMENTS: Bone mineral densitometry was performed using the [employer] System. Bone mineral density as measured about the Lumbar spine is: ----- L1-L4(G/cm2): 1.433 T Score Values are as follows: ----- L1: 1.9 ----- L2: 1.8 ----- L3: 2.1 ----- L4: 1.7 ----- L1-L4: 2.1 Bone mineral density BASELINE Bone mineral density about the R hip (g/cm2): 0.733 Bone mineral density about the L hip (g/cm2): 0.836 T Score values are as follows: -----R Neck: -2.2 -----L Neck: -1.5 -----R Total: -1.5 -----L Total: -0.8 Bone mineral density BASELINE FRAX%s: The graph provided illustrates a 11.3 chance for a major osteoporotic fx and a 2.0 chance for the hips probability for fx in 10 years time. IMPRESSION: Osteopenia (T Score between -2.5 and -1). There is slightly increased risk of fracture and the patient may be considered for treatment. Re-Screen 2-5 years. NOTE: T-SCORE=SD OF THE YOUNG ADULT MEAN.
== END | disposition home or self-care (01) ==
LOC: RADBDWWP 15:24
PROVIDERS: ATTEND Internal Medicine Endocrinology, Diabetes & Metabolism
DX: E21.0 Primary hyperparathyroidism (principal); N28.1 Cyst of kidney, acquired
CPT/HCPCS: 76770; 77080; 80053; 82306; 83970

== ENCOUNTER → 2022-01-06 | Outpatient (CLI) | payer MEDICARE ==
--- NOTE | 2022-01-06 19:48 | US ---
EXAMINATION TYPE: US thyroid st tissue head/neck DATE OF EXAM: 01/06/2022 COMPARISON: NONE CLINICAL HISTORY: E21.0 Primary hyperparathyroidism. GLAND SIZE: Right Lobe: 3.7 x 1.3 x 1.2 cm Overall Parenchyma: homogenous Left Lobe: 3.2 x 0.9 x 1.1 cm Overall Parenchyma: homogeneous Isthmus Thickness: 0.3 cm NODULES RIGHT: # of nodules measured on right: 0 LEFT: # of nodules measured on left: 0 ISTHMUS: # of nodules measured in the isthmus: 0 Bilateral neck scanned, no evidence of lymphadenopathy. Area of parathyroids scanned bilaterally- Parathyroids not visualized at time of scan. IMPRESSION: 1. Normal thyroid ultrasound. 2. Nonvisualization of the parathyroids. If additional evaluation would be of benefit, nuclear medici ne scan for parathyroid its could be performed.
== END | disposition home or self-care (01) ==
LOC: RADUSWWP 13:51
PROVIDERS: ATTEND Surgery
DX: E21.0 Primary hyperparathyroidism (principal)
CPT/HCPCS: 76536

== ENCOUNTER → 2022-07-29 | Outpatient (CLI) | payer MEDICARE ==
[2022-07-29 18:30] LABS: Basophils # (A) 0.05 X 10*3/uL (0.00-0.10); Basophils % (A) 0.5 %; Eosinophils # (A) 0.24 X 10*3/uL (0.04-0.35); Eosinophils % (A) 2.5 %; HGB 11.8 g/dL (12.0-15.0); Immature Grans, Automated 0.4 %; Lymphocytes # (A) 3.32 X 10*3/uL (0.90-5.00); Lymphocytes % (A) 35.1 %; MCH 27.8 pg (27.0-32.0); MCHC 31.1 g/dL (32.0-37.0); MCV 89.6 fL (80.0-97.0); Mean Platelet Volume 9.6 fL (9.5-12.2); Monocytes # (A) 0.63 X 10*3/uL (0.20-1.00); Monocytes % (A) 6.7 %; NRBC Per 100 WBC 0 /100 WBCS (0.0-0.0); Neutrophils # (A) 5.19 X 10*3/uL (1.80-7.70); Neutrophils % (A) 54.8 %; Platelet Count 241 X 10*3/uL (140-440); RBC 4.24 X 10*6/uL (4.10-5.20); RDW 14.9 % (11.5-14.5); WBC 9.47 X 10*3/uL (4.50-10.00)
[2022-07-29 20:27] LABS: % Iron Saturation 18.92 (12.00-45.00); African American GFR (CKD) 60.2 (60.0-200.0); Albumin 4.3 g/dL (3.8-4.9); Albumin/Globulin Ratio 1.79 (1.60-3.17); Anion Gap 11.1 mmol/L (10.00-18.00); BUN/Creat Ratio 12.36 Ratio (12.00-20.00); Blood Urea Nitrogen 13.6 mg/dL (9.0-27.0); Calcium 9.5 mg/dL (8.7-10.3); Carbon Dioxide 27.9 mmol/L (20.0-27.5); Globulin 2.4 g/dL (1.6-3.3); Non-African American GFR(CKD) 51.9 (60.0-200.0); Potassium 3.8 mmol/L (3.5-5.5); T4, Free (Free Thyroxine) 1.43 ng/dL (0.800-1.800); Total Bilirubin 0.5 mg/dL (0.30-1.20); Total Protein 6.7 g/dL (6.2-8.2)
--- NOTE | 2022-07-30 08:27 | MM ---
Reason for Exam: Screening (asymptomatic). Last mammogram was performed 4 year(s) and 1 month(s) ago. Patient History: Menarche at age 12. First Full-Term at age 16. Postmenopausal. Patient has history of breast feeding. Hormonal Contraceptives for 10 years from age 17 until age 27. Risk Values: Emmy 5 year model risk: 1.2%. NCI Lifetime model risk: 4.2%. Prior Study Comparison: 07/19/2014 Bilateral Screening Mammogram, [facility]. 08/03/2015 Bilateral Screening Mammogram, [facility]. 07/19/2018 Bilateral Screening Mammogram, [facility]. Tissue Density: There are scattered fibroglandular densities. Findings: Analyzed By CAD. Pattern appears symmetrical and stable. Some chronic underlying nodularity is present. No suspicious groups of microcalcifications, spiculated or lobular masses, architectural distortion or other secondary signs of malignancy are mammographically apparent. Overall Assessment: Benign, BI-RAD 2 Management: Screening Mammogram of both breasts in 1 year. A negative mammogram report should not preclude additional follow up of suspicious palpable abnormalities. Patient should continue monthly self breast exam. A clinical breast exam by your physician is recommended on an annual basis and results should be correlated with mammographic findings. Electronically signed and approved by: Sukh Yang D.O. Radiologis
== END | disposition home or self-care (01) ==
LOC: RADMAMWWP 12:20
PROVIDERS: ATTEND Internal Medicine
DX: Z12.31 Encounter for screening mammogram for malignant neoplasm of breast (principal); I10 Essential (primary) hypertension; D50.9 Iron deficiency anemia, unspecified; M85.80 Other specified disorders of bone density and structure, unspecified site; E03.9 Hypothyroidism, unspecified; E21.0 Primary hyperparathyroidism; Z78.0 Asymptomatic menopausal state
CPT/HCPCS: 77063; 77067; 80053; 82306; 82607; 82746; 83540; 83550; 83970; 84439; 84443; 85025

== ENCOUNTER → 2022-10-13 | Outpatient (CLI) | payer MEDICARE ==
--- NOTE | 2022-10-13 14:00 | CTL ---
EXAMINATION TYPE: CT Low Dose Lung DATE OF EXAM ORDERED: 10/13/2022 HISTORY: Long-term tobacco use. Lung cancer screening CT DLP: 108.[address] CTDI: 3.1 mGy Automated exposure control for dose reduction was used. SCREENING VISIT: First after baseline COMPARISON: Prior study August 26, 2021 TECHNIQUE: Low dose computed tomography scan was performed through the chest at 1 mm thick sections a nd reconstructed images in multiple planes at 1 mm and [address] DIAGNOSTIC QUALITY: Satisfactory FINDINGS: LUNG NODULES: Present, detailed below: There is 4 x 2 mm anterior right lower lung nodule along fissure stable bilateral benign . No new or enlarging greater than 5 mm pulmonary nodules. LUNGS: COPD: Severity: Mild Fibrosis: Severity: Mild scattered linear scarring Lymph nodes: No greater than 1 cm Other findings: None RIGHT PLEURAL SPACE: Effusion: None Calcification: None Thickening: None Pneumothorax: None LEFT PLEURAL SPACE: Effusion: None Calcification: None Thickening: None Pneumothorax: None HEART: Heart Size: Normal Coronary Calcification: Moderate to severe Pericardial Effusion: None OTHER FINDINGS: Upper abdomen: Small size hiatal hernia. Small dependent gallstones. There is 1.2 cm partially exophy tic thin-walled cyst from the upper pole left kidney. Bony thorax: Slight scoliosis. Supraclavicular region: None Other: None IMPRESSION: No new or enlarging greater than [address] LUNG RAD AND CT CHEST RECOMMENDATION: Lung-Rad 2 Benign Appearance or Behavior: Continue annual sc reening with LDCT in 12 months. S Modifier (other clinically significant findings):
== END | disposition home or self-care (01) ==
LOC: RADCTMAIN 12:24
PROVIDERS: ATTEND Internal Medicine
DX: Z12.2 Encounter for screening for malignant neoplasm of respiratory organs (principal); R91.8 Other nonspecific abnormal finding of lung field; Z87.891 Personal history of nicotine dependence
CPT/HCPCS: 71271

== ENCOUNTER → 2023-01-22 | Outpatient (CLI) | payer MEDICARE ==
[2023-01-22 11:49] LABS: Basophils # (A) 0.04 X 10*3/uL (0.00-0.10); Basophils % (A) 0.4 %; Eosinophils # (A) 0.19 X 10*3/uL (0.04-0.35); Eosinophils % (A) 2.1 %; HCT 39.4 % (37.2-46.3); HGB 12.4 d/dL (12.0-15.0); Lymphocytes # (A) 3.05 X 10*3/uL (0.90-5.00); Lymphocytes % (A) 33.7 %; MCH 29.5 pg (27.0-32.0); MCHC 31.5 d/dL (32.0-37.0); MCV 93.8 FL (80.0-97.0); Mean Platelet Volume 9.3 FL (9.5-12.2); Monocytes # (A) 0.56 X 10*3/uL (0.20-1.00); Monocytes % (A) 6.2 %; NRBC Per 100 WBC 0 X 10*3/uL (0.00-0.01); Neutrophils # (A) 5.18 X 10*3/uL (1.80-7.70); Neutrophils % (A) 57.2 %; Platelet Count 210 X 10*3/uL (140-440); RDW 14.6 % (11.5-14.5); WBC 9.06 X 10*3/uL (4.50-10.00)
[2023-01-22 12:09] LABS: % Iron Saturation 29.64 (12.00-45.00); ALT 36 U/L (8-44); AST 28 U/L (13-35); Albumin 4.3 d/dL (3.8-4.9); Albumin/Globulin Ratio 1.87 Ratio (1.60-3.17); Alkaline Phosphatase 85 U/L (41-126); BUN/Creat Ratio 15.92 Ratio (12.00-20.00); Blood Urea Nitrogen 19.1 mg/dL (9.0-27.0); Calcium 9.7 mg/dL (8.7-10.3); Carbon Dioxide 27.2 mmol/L (21.6-31.8); Chloride 111 mmol/L (96-109); Chol/HDL Ratio 2.52 Ratio; Globulin 2.3 d/dL (1.6-3.3); Glucose 122 mg/dL (70-110); Iron 83 UG/DL (50-170); LDL Cholesterol,Calculated 79.5 mg/dL (0.0-131.0); Potassium 4.9 mmol/L (3.5-5.5); Sodium 150 mmol/L (135-145); T4, Free (Free Thyroxine) 1.59 ng/dL (0.80-1.80); Total Bilirubin 0.4 mg/dL (0.3-1.2); Total Iron Binding Capacity 280 UG/DL (228-460); Total Protein 6.6 d/dL (6.2-8.2); VLDL Calculation 12.84 mg/dL (5.00-40.00)
== END | disposition home or self-care (01) ==
LOC: LABWHC1 07:37
PROVIDERS: ATTEND Internal Medicine
DX: Z00.00 Encounter for general adult medical examination without abnormal findings (principal); N18.30 Chronic kidney disease, stage 3 unspecified; E03.9 Hypothyroidism, unspecified; D50.9 Iron deficiency anemia, unspecified; M85.80 Other specified disorders of bone density and structure, unspecified site; R73.01 Impaired fasting glucose
CPT/HCPCS: 36415; 80053; 80061; 82306; 82607; 82728; 82746; 83036; 83540; 83550; 83970; 84439; 84443; 85025

== ENCOUNTER → 2023-08-06 | Outpatient (CLI) | payer MEDICARE ==
[2023-08-06 19:16] LABS: ALT 18 U/L (8-44); AST 20 U/L (13-35); Albumin 4.3 g/dL (3.8-4.9); Albumin/Globulin Ratio 1.72 Ratio (1.60-3.17); Alkaline Phosphatase 103 U/L (41-126); Blood Urea Nitrogen 13.5 mg/dL (9.0-27.0); Calcium 9.3 mg/dL (8.7-10.3); Carbon Dioxide 26.1 mmol/L (21.6-31.8); Chloride 103 mmol/L (96-109); Globulin 2.5 g/dL (1.6-3.3); Glucose 122 mg/dL (70-110); Potassium 3.8 mmol/L (3.5-5.5); Sodium 141 mmol/L (135-145); Total Bilirubin 0.6 mg/dL (0.3-1.2); Total Protein 6.8 g/dL (6.2-8.2)
== END | disposition home or self-care (01) ==
LOC: LABWHC1 15:29
PROVIDERS: ATTEND Internal Medicine Endocrinology, Diabetes & Metabolism
DX: E21.0 Primary hyperparathyroidism (principal)
CPT/HCPCS: 36415; 80053; 82306; 83970

== ENCOUNTER → 2023-09-17 | Outpatient (CLI) | payer MEDICARE ==
[2023-09-17 18:57] LABS: Blood Urea Nitrogen 12.1 mg/dL (9.0-27.0); Calcium 9.2 mg/dL (8.7-10.3); Carbon Dioxide 23.3 mmol/L (21.6-31.8); Chloride 104 mmol/L (96-109); Glucose 108 mg/dL (70-110); Potassium 3.9 mmol/L (3.5-5.5); Sodium 141 mmol/L (135-145)
== END | disposition home or self-care (01) ==
LOC: LABWHC1 13:22
PROVIDERS: ATTEND Internal Medicine
DX: I10 Essential (primary) hypertension (principal)
CPT/HCPCS: 36415; 80048

== ENCOUNTER → 2023-11-03 | Outpatient (CLI) | payer MEDICARE ==
--- NOTE | 2023-11-05 22:41 | CTL ---
EXAMINATION TYPE: CT Low Dose Lung DATE OF EXAM ORDERED: 11/03/2023 HISTORY: Former smoker tobacco use. Lung cancer screening CT DLP: 79.[address] CTDI: 2.4 mGy Automated exposure control for dose reduction was used. SCREENING VISIT: Subsequent COMPARISON: 10/13/2022 TECHNIQUE: Low dose computed tomography scan was performed through the chest at 1 mm thick sections a nd reconstructed images in the coronal plane at [address] DIAGNOSTIC QUALITY: Satisfactory FINDINGS: LUNG NODULES: None. Previous tiny nodular right lower lung field not identified. LUNGS: COPD: Severity: None Fibrosis: Severity: None Lymph nodes: Non- Other findings: None RIGHT PLEURAL SPACE: Effusion: None Calcification: None Thickening: None Pneumothorax: None LEFT PLEURAL SPACE: Effusion: None Calcification: None Thickening: None Pneumothorax: None HEART: Heart Size: Normal Coronary calcification: Moderate Pericardial effusion: Minimal OTHER FINDINGS: Upper abdomen: There is minimal prominence of the left adrenal gland which is stable from comparison Bony thorax: Normal Supraclavicular region: Normal Other: Ascending thoracic aorta at the level the main pulmonary artery measures 3.6 cm. The main pul monary artery at the bifurcation measures 3.0 cm. IMPRESSION: 1. No suspicious changes suggest primary or metastatic neoplasm. FOLLOW UP CT CHEST RECOMMENDATION: Follow-up low-dose CT chest one year CT LUNG RAD: Lung-Rad 2 Benign Appearance or Behavior
== END | disposition home or self-care (01) ==
LOC: RADCTMAIN 11:15
PROVIDERS: ATTEND Internal Medicine
DX: Z12.2 Encounter for screening for malignant neoplasm of respiratory organs (principal); Z87.891 Personal history of nicotine dependence
CPT/HCPCS: 71271

== ENCOUNTER → 2023-12-09 | Outpatient (CLI) | payer MEDICARE ==
[2023-12-09 15:14] LABS: Blood Urea Nitrogen 20.8 mg/dL (9.0-27.0)
== END | disposition home or self-care (01) ==
LOC: LABWHC1 11:05
PROVIDERS: ATTEND Internal Medicine
DX: H93.19 Tinnitus, unspecified ear (principal)
CPT/HCPCS: 36415; 82565; 84520

== ENCOUNTER → 2023-12-25 | Outpatient (CLI) | payer MEDICARE ==
--- NOTE | 2023-12-25 15:00 | MR ---
EXAMINATION TYPE: MR brain wo/w con DATE OF EXAM: 12/25/2023 COMPARISON: NONE HISTORY: 68-year-old female H93.19, Bilateral tinnitus, vision changes. TECHNIQUE: Multiplanar, multisequence images of the brain and brainstem were acquired before and aft er administration of 8 mL IV Gadavist. Diffusion weighted imaging is performed. FINDINGS: No evidence for acute infarction, hemorrhage, mass, mass effect, midline shift, herniation, effacemen t of basal cisterns, or extra-axial fluid collection. The ventricles and sulci are age-appropriate. Major intracranial flow voids are intact. T2/FLAIR weighted sequences show moderate scattered bright white matter change in the subcortical and deep white matter regions of both cerebral hemispheres. Additional patchy change within the right gr eater than left paramedian amie. Midline structures demonstrate normal morphology. The craniocervical junction is normal. Post contrast images demonstrate no evidence of pathologic enhancement. Dural venous sinuses are pat ent. Mild mucosal thickening ethmoid air cells. Globes are intact. IMPRESSION: 1. Chronic T2 bright white matter change with moderate scattered burden in both cerebral hemispheres. Differential considerations include changes of chronic small vessel ischemic disease, chronic hypert ension, chronic migraines, and demyelinating disease. 2. No acute intracranial abnormality or enhancing lesion seen.
== END | disposition home or self-care (01) ==
LOC: RADMRIMAIN 11:16
PROVIDERS: ATTEND Internal Medicine
DX: H93.19 Tinnitus, unspecified ear (principal); G37.9 Demyelinating disease of central nervous system, unspecified; G43.909 Migraine, unspecified, not intractable, without status migrainosus; I10 Essential (primary) hypertension
CPT/HCPCS: 70553; A9585

== ENCOUNTER → 2024-11-09 | Outpatient (CLI) | payer MEDICARE ==
[2024-11-09 10:17] LABS: Basophils # (A) 0.06 X 10*3/uL (0.00-0.10); Basophils % (A) 0.7 %; Eosinophils # (A) 0.18 X 10*3/uL (0.04-0.35); Eosinophils % (A) 2.2 %; HCT 38.9 % (37.2-46.3); HGB 12.8 g/dL (12.0-15.0); Lymphocytes # (A) 2.68 X 10*3/uL (0.90-5.00); Lymphocytes % (A) 33.3 %; MCH 29.7 pg (27.0-32.0); MCHC 32.9 g/dL (32.0-37.0); MCV 90.3 FL (80.0-97.0); Mean Platelet Volume 9.5 FL (9.5-12.2); Monocytes # (A) 0.46 X 10*3/uL (0.20-1.00); Monocytes % (A) 5.7 %; NRBC Per 100 WBC 0 X 10*3/uL (0.00-0.01); Neutrophils # (A) 4.65 X 10*3/uL (1.80-7.70); Neutrophils % (A) 57.9 %; Platelet Count 242 X 10*3/uL (140-440); RBC 4.31 X 10*6/uL (4.10-5.20); WBC 8.05 X 10*3/uL (4.50-10.00)
[2024-11-09 10:52] LABS: ALT 22 U/L (8-44); AST 25 U/L (13-35); Albumin 4.2 g/dL (3.8-4.9); Albumin/Globulin Ratio 1.83 Ratio (1.60-3.17); Alkaline Phosphatase 111 U/L (41-126); Blood Urea Nitrogen 19.5 mg/dL (9.0-27.0); Calcium 9.2 mg/dL (8.7-10.3); Carbon Dioxide 24.8 mmol/L (21.6-31.8); Chloride 108 mmol/L (96-109); Chol/HDL Ratio 2.43 Ratio; Ferritin 89.6 ng/mL (10.0-291.0); Globulin 2.3 g/dL (1.6-3.3); Glucose 118 mg/dL (70-110); Iron 90 UG/DL (50-170); LDL Cholesterol,Calculated 67.3 mg/dL (0.0-131.0); Magnesium 1.8 mg/dL (1.5-2.4); Potassium 4.1 mmol/L (3.5-5.5); Sodium 144 mmol/L (135-145); Total Bilirubin 0.5 mg/dL (0.3-1.2); Total Iron Binding Capacity 297 UG/DL (228-460); Total Protein 6.5 g/dL (6.2-8.2); VLDL Calculation 14.64 mg/dL (5.00-40.00)
--- NOTE | 2024-11-09 16:11 | CTL ---
EXAMINATION TYPE: CT Low Dose Lung DATE OF EXAM ORDERED: 11/09/2024 COMPARISON: 1624 CLINICAL INDICATION: Female, 69 years old with history of Z12.2 LUNG CA SCR Z87.891 FORMER SMOKER; PH H, Former smoker was 1 ppd x 30 years, quit 6 years ago, no concerns, Lung cancer screening, History of Smoking/tobacco use. TECHNIQUE: Low dose computed tomography scan was performed through the chest at 1 mm thick sections a nd reconstructed images in multiple planes at 1 mm and [address] DLP: 96.[address] CTDI: 2.7 mGy Automated exposure control for dose reduction was used. CT DIAGNOSTIC QUALITY: Satisfactory FINDINGS: EXAMINATION TYPE: CT Low Dose Lung DATE OF EXAM ORDERED: 11/09/2024 CLINICAL INDICATION: Female, 69 years old with history of Z12.2 LUNG CA SCR Z87.891 FORMER SMOKER, hi story of tobacco use, Lung cancer screening CT DLP: 96.[address] CTDI: 2.7 mGy Automated exposure control for dose reduction was used. Comparison: None TECHNIQUE: Low dose computed tomography scan was performed through the chest at 1 mm thick sections a nd reconstructed images in multiple planes at 1 mm and [address] DIAGNOSTIC QUALITY: Satisfactory FINDINGS: There is no suspicious lung mass or nodule there are 2 stable juxtapleural nodules on the right There is no airspace consolidation or abnormal interstitial density. There is no mediastinal, hilar or axillary adenopathy. The ascending thoracic aorta is 3.85 cm and t here is moderate to marked atherosclerotic calcification of the thoracic aorta. There is no pleural effusion, pleural thickening or pneumothorax. No focal osseous lesions are seen. Limited scans the upper abdomen reveals cholelithiasis. IMPRESSION: 1. Lung rads Category 2 benign.. Continue routine screening at yearly intervals. 2. No acute cardiopulmonary disease. 3. Cholelithiasis [facility], , 11/09/2024 4:08 PM
== END | disposition home or self-care (01) ==
LOC: LABWHC1 08:03
PROVIDERS: ATTEND Internal Medicine
DX: Z12.2 Encounter for screening for malignant neoplasm of respiratory organs (principal); I10 Essential (primary) hypertension; E03.9 Hypothyroidism, unspecified; M85.80 Other specified disorders of bone density and structure, unspecified site; E83.52 Hypercalcemia; D50.9 Iron deficiency anemia, unspecified; K80.20 Calculus of gallbladder without cholecystitis without obstruction; Z87.891 Personal history of nicotine dependence
CPT/HCPCS: 36415; 71271; 80053; 80061; 82306; 82607; 82728; 82746; 83036; 83540; 83550; 83735; 83970; 84439; 84443; 85025

== ENCOUNTER → 2024-11-11 | Outpatient (CLI) | payer MEDICARE | END | disposition home or self-care (01) | LOC: LABWHC1 10:52 | PROVIDERS: ATTEND Internal Medicine | DX: I10 Essential (primary) hypertension (principal); E83.52 Hypercalcemia; E03.9 Hypothyroidism, unspecified | CPT/HCPCS: 36415; 82310 ==

== ENCOUNTER → 2025-01-02 | Outpatient (CLI) | payer MEDICARE ==
--- NOTE | 2025-01-02 14:53 | MM ---
Reason for Exam: Screening (asymptomatic). Last mammogram was performed 1 year(s) and 1 month(s) ago. Patient History: Menarche at age 12. First Full-Term at age 16. Postmenopausal. Patient has history of breast feeding. Hormonal Contraceptives for 10 years from age 17 until age 27. Risk Values: Emmy 5 year model risk: 1.2%. NCI Lifetime model risk: 3.9%. Prior Study Comparison: 07/19/2018 Bilateral Screening Mammogram, [facility]. 07/29/2022 Bilateral MG 3D screening mammo w/cad, [facility]. 12/09/2023 Bilateral MG 3D screening mammo w/cad, [facility]. Tissue Density: There are scattered areas of fibroglandular density. Findings: Analyzed By CAD. Chronic nodular asymmetry anteriorly on the right. Benign bilateral vascular calcifications. There is no suspicious group of microcalcifications or new suspicious mass in either breast. Overall Assessment: Benign, BI-RAD 2 Management: Screening Mammogram of both breasts in 1 year. Patient should continue monthly self-breast exams. A clinical breast exam by your physician is recommended on an annual basis. This exam should not preclude additional follow-up of suspicious palpable abnormalities. Note on Emmy scores and lifetime risk: 1. A Emmy score greater than 3% is considered moderate risk. If this is the case, consider specialist referral to assess eligibility for a risk reducing agent. 2. If overall lifetime risk for the development of breast cancer is 20% or higher, the patient may qualify for future screening with alternating mammogram and breast MRI. [facility], , 01/02/2025 2:50 PM. Electronically signed and approved by: Tye Loco M.D. Radiologist
--- NOTE | 2025-01-02 15:29 | BD ---
EXAMINATION TYPE: Axial Bone Density DATE OF EXAM: 01/02/2025 CLINICAL HISTORY: 69 years old Female. ICD-10 CODE: M85.80 OSTEOPENIA , Additional History: Height: 61.5 in Weight: 166 lbs MEDICATIONS: Thyroid Medications: yes Which medication: Levothyroxine How Lon+ years EXAM MEASUREMENTS: Bone mineral densitometry was performed using the [employer] System. Bone mineral density as measured about the Lumbar spine is: ----- L1-L4(G/cm2): 1.513 T Score Values are as follows: ----- L1: 2.7 ----- L2: 3.4 ----- L3: 2.9 ----- L4: 2.2 ----- L1-L4: 2.8 Z Score Values are as follows: ----- L1: 4.0 ----- L2: 4.7 ----- L3: 4.2 ----- L4: 3.5 ----- L1-L4: 4.1 Bone mineral density has: Increased 5.6% since study of: 11/06/2021 Bone mineral density about the R hip (g/cm2): 0.788 Bone mineral density about the L hip (g/cm2): 0.888 T Score values are as follows: -----R Neck: -2.1 -----L Neck: -1.3 -----R Total: -1.7 -----L Total: -0.9 Z Score values are as follows: -----R Neck: -0.7 -----L Neck: 0.1 -----R Total: -0.6 -----L Total: 0.2 Bone mineral density has: Decreased -3.0% since study of: 11/06/2021 FRAX%s: The graph provided illustrates a 11.9% chance for a major osteoporotic fx and a 2.3% chance f or the hips probability for fx in 10 years time. IMPRESSION: Osteopenia (T Score between -2.5 and -1). There is slightly increased risk of fracture and the patient may be considered for treatment. Re-Screen 2-5 years. NOTE: T-SCORE=SD OF THE YOUNG ADULT MEAN. [facility], , 01/02/2025 3:26 PM
== END | disposition home or self-care (01) ==
LOC: RADMAMWWP 14:17
PROVIDERS: ATTEND Internal Medicine
DX: Z12.31 Encounter for screening mammogram for malignant neoplasm of breast (principal); R92.323 Mammographic fibroglandular density, bilateral breasts; M85.89 Other specified disorders of bone density and structure, multiple sites; Z78.0 Asymptomatic menopausal state; Z92.0 Personal history of contraception
CPT/HCPCS: 77063; 77067; 77080